=== PATIENT | female | born 1985 | race Caucasian/White ===

== ENCOUNTER 2020-07-06 14:27 | Emergency (ER) | payer BC, MEDICAID, SELFPAY ==
[2020-07-06 14:32] VITALS: BP 134/85; PULSE 101; RESP 16; TEMP 37.2; O2SAT 99; BMI 28.3
--- NOTE | 2020-07-06 14:36 | XRR_ITS ---
PROCEDURE INFORMATION: Exam: XR Chest, 1 View Exam date and time: 07/06/2020 2:37 PM Age: 34 years old Clinical indication: Chest pain; Additional info: Cp TECHNIQUE: Imaging protocol: XR of the chest Views: 1 view. Total images: 1 COMPARISON: No relevant prior studies available. FINDINGS: Lungs: Unremarkable. No consolidation. Pleural spaces: Unremarkable. No pleural effusion. No pneumothorax. Heart/Mediastinum: Unremarkable. No cardiomegaly. Bones/joints: Unremarkable. XR/XR chest 1V portable [id number] IMPRESSION: No acute findings.
--- NOTE | 2020-07-06 14:48 | ECG_ITS ---
[facility] Test Date: 2020-07-06 Pat Name: GUILLE PITTS Department: Room: Gender: Female Warping [employer] Operator: : 1985 Requested By: Capo Pat Order Number: [id number] Soco MD: Cherie Garcia M.D. Measurements Intervals Camilla Rate: 99 P: 66 AK: 146 QRS: 55 QRSD: 86 T: 48 QT: 338 QTc: 434 Interpretive Statements SINUS RHYTHM NONSPECIFIC T-WAVE ABNORMALITY No previous ECG available for comparison Electronically Signed On 07-06-2020 18:36:15 INTERIOR DECORATOR by Cherie Garcia M.D. [id number]
--- NOTE | 2020-07-06 14:51 | W.ED.CHESTPA ---
HPI - Chest Pain General: Chief Complaint: Chest Pain Stated Complaint: CP Time Seen by Provider: 07/06/20 14:39 History of Present Illness: HPI narrative: The patient is a 34-year-old female previously healthy who complains of midsternal chest pain worse with coughing. She developed a cough 3 days ago. Denies fever, chills, and shortness of breath. She is tender to palpation in her mid chest reproducing her chief complaint. She says the pain started this morning at work and has worsened. As well she has a relative from a chcf she has been helping to lift and move around to the bathroom for the past couple weeks. MD complaint: chest pain Onset: during rest and during exertion Pain location: substernal Pain radiation: none Quality: sharp Relieving factors: nothing Exacerbating factors: nothing Associated symptoms: Reports no associated symptoms; Deny abdominal pain, dyspnea or palpitations Review of Systems General: Reports: 10 or more systems reviewed and unremarkable except in HPI and below Const: Denies: fatigue Eyes: Denies: change in vision, blurry vision or eye redness ENMT: Denies: throat pain, swelling of lips/tongue, ear or mastoid pain or nasal congestion Card: Denies: chest pain, palpitations, irregular heart rhythm, edema, dyspnea on exertion or orthopnea Resp: Denies: dyspnea, productive cough or non-productive cough GI: Denies: abdominal pain, diarrhea or GI cramping : Denies: flank pain, difficulty voiding, urinary frequency or urinary urgency Musc: Denies: neck pain, back pain, extremity pain, joint pain, joint redness, limited range of motion or muscle weakness Skin/Breast: Denies: rash, pruritus, erythema, skin pain or skin tenderness Neuro: Denies: headache(s), numbness in extremities, weakness in extremities, sensory changes, difficulty walking, dizziness, confusion or Slurred speech present Psych: Denies: anxiety or depression Endo: Denies: polyuria All/Imm: Denies: urticaria, throat swelling or tongue swelling [facility] ED Female Reproductive History: Date of last menstrual period: 06/16/20 Physical Exam Const: COMMON NORMALS: no acute distress, average body habitus, patient oriented x3, no limitations, healthy appearing, alert and well nourished GENERAL APPEARANCE: cooperative, comfortable, well kempt and well developed ORIENTATION/CONSCIOUSNESS: Yes awake, Yes oriented to person, Yes oriented to place and Yes oriented to time HENMT: COMMON NORMALS: normocephalic, external ears normal and Normal external nose present HEAD & SCALP: normal to inspection and normocephalic NOSE: Normal external nose present EXTERNAL EAR: Yes external ears normal MOUTH: Normal oral and palatal mucosa present THROAT: posterior oropharynx normal Eye: COMMON NORMALS: Equal, round and reactive pupils present and EOMs intact bilaterally GENERAL EYE: appearance normal, both eyes and all related structures PUPIL: Yes Equal, round and reactive pupils present Neck/C-Spine: COMMON NORMALS: full ROM, no lymphadenopathy, no meningeal signs and no JVD GENERAL: Yes normal visual inspection Lymph: LYMPHATIC: no lymphadenopathy noted Chest: COMMONS NORMALS: normal inspection of the chest and normal palpation of entire chest wall OTHER: Anterior chest wall tenderness reproducing her chief complaint Resp: COMMON NORMALS: normal respiratory effort, No retractions, No use of accessory muscles, clear to auscultation bilaterally and percussion normal EFFORT & INSPECTION: Yes able to speak in complete sentences AUSCULTATION: clear to auscultation bilaterally PERCUSSION: percussion normal Cardio: COMMON NORMALS: no JVD, regular rate, regular rhythm, S1 normal heart sound present, S2 normal heart sound present and Peripheral pulses 2+ throughout RATE: regular rate RHYTHM: regular rhythm HEART SOUNDS: S1 normal heart sound present and S2 normal heart sound present PERIPHERAL PULSES: Peripheral pulses 2+ throughout GI: COMMON NORMALS: Normal to inspection, nondistended, normoactive bowel sounds present, Soft to palpation, non-tender and no masses INSPECTION: Yes normal to inspection PALPATION: Yes Soft to palpation : COMMON NORMALS: Yes no CVA tenderness BLADDER/KIDNEY EXAM: Yes no CVA tenderness Back/Pelvis: COMMON NORMALS: no CVA tenderness, thoracic and lumbar spine normal to inspection, no thoracic nor lumbar tenderness and thoraco-lumbar ROM normal Extremity: COMMON NORMALS: normal to inspection, full ROM, capillary refill normal, no joint enlargement and no pedal edema GENERAL: Yes normal exam except as noted Neuro: COMMON NORMALS: patient oriented x3, CN's II-XII intact bilaterally, moves all extremities, no focal motor deficits, no sensory deficits noted and gait normal SENSORIUM/ORIENTATION: Yes alert, Yes oriented to person, Yes oriented to place and Yes oriented to time MENINGEAL SIGNS: Yes no meningeal signs Psych: COMMON NORMALS: mental status grossly normal, Normal thought process present, cooperative, normal affect and speech normal APPEARANCE: Yes well kempt ATTITUDE: Yes calm SPEECH: Yes normal speech THOUGHT PROCESS: Normal thought process present Skin: COMMON NORMALS: no rashes or lesions noted GENERAL SKIN EXAM: no rashes or lesions noted Course ED course: Patient comes in with reproducible chest pain to coughing and palpation. Acute bronchitis. Discharged with azithromycin. Follow-up with primary care physician in a few days. Vital Signs: Vital signs: Vital Signs Temperature 99 F 07/06/20 14:32 Pulse Rate 101 H 07/06/20 14:32 Respiratory Rate 16 07/06/20 14:32 Blood Pressure 134/85 07/06/20 14:32 Pulse Oximetry 99 07/06/20 14:32 MDM - Chest Pain Lab Data: Labs: Lab Results 07/06/20 07/06/20 07/06/20 Range/Units 15:05 15:05 15:05 WBC 8.0 (4.0-10.0) 10^3/ uL RBC 4.62 (4.1-5.3) 10^6/u L Hgb 14.0 (11.5-15.3) g/dL Hct 41.8 (37.0-47.0) % MCV 90.5 (81-99) fL MCH 30.3 (28.0-34.0) pg MCHC 33.5 (30.0-36.0) g/dL RDW 11.9 L (12.1-15.1) % Plt Count 270 (130-400) 10^3/c mm MPV 11.0 H (7.4-10.4) fL Neut % (Auto) 69.6 % Lymph % (Auto) 24.3 % [place] % (Auto) 4.5 % Eos % (Auto) 0.6 % Baso % (Auto) 0.9 % Neut # (Auto) 5.56 (1.8-7.7) 10^3/u L Lymph # (Auto) 1.9 (0.8-4.8) 10^3/u L [place] # (Auto) 0.4 (0.2-0.9) 10^3/u L Eos # (Auto) 0.1 (0.0-0.8) 10^3/u L Baso # (Auto) 0.1 (0.0-0.1) 10^3/u L Nucleated RBC % (a uto) 0 % Nucleated RBCs # 0.0 /100WBC D-Dimer 0.31 (0-0.59) ug/mIFE U Sodium 137 (136-145) mmol/L Potassium 3.9 (3.5-5.1) mmol/L Chloride 102 (98-107) mmol/L Carbon Dioxide 27 (22-29) mmol/L Anion Gap 11.9 (5-19) BUN 3 L (6-20) mg/dL Creatinine 0.5 (0.5-0.9) mg/dL GFR Calculation 143.0 H (90-130) mL/min Glucose 99 (65-115) mg/dL Calculated Osmolal ity 281 L (285-295) mOsm/k g Calcium 9.4 (8.5-10.5) mg/dL Total Bilirubin 0.2 (0.15-1.2) mg/dL AST 16 (0-32) U/L ALT 16 (0-33) U/L Alkaline Phosphata se 83 (35-105) IU/L Troponin T Baselin e (0-10) ng/L Total Protein 6.6 (6.6-8.7) g/dL Albumin 4.1 (3.5-5.2) g/dL Globulin 2.5 (1.3-4.6) g/dL HCG, Qual (Negative) Urine Color (Yellow) Urine Appearance (CLEAR) Urine pH (5-7) Ur Specific [place] (1.005-1.030) Urine Protein (Negative) Urine Glucose (UA) (Normal) Urine Ketones (Negative) Urine Blood (Negative) Urine Nitrate (Negative) Urine Bilirubin (Negative) Urine Urobilinogen (Negative) mg/dL Ur Leukocyte Natalia ase (Negative) 07/06/20 07/06/20 07/06/20 Range/Units 15:05 15:25 15:25 WBC (4.0-10.0) 10^3/ uL RBC (4.1-5.3) 10^6/u L Hgb (11.5-15.3) g/dL Hct (37.0-47.0) % MCV (81-99) fL MCH (28.0-34.0) pg MCHC (30.0-36.0) g/dL RDW (12.1-15.1) % Plt Count (130-400) 10^3/c mm MPV (7.4-10.4) fL Neut % (Auto) % Lymph % (Auto) % [place] % (Auto) % Eos % (Auto) % Baso % (Auto) % Neut # (Auto) (1.8-7.7) 10^3/u L Lymph # (Auto) (0.8-4.8) 10^3/u L [place] # (Auto) (0.2-0.9) 10^3/u L Eos # (Auto) (0.0-0.8) 10^3/u L Baso # (Auto) (0.0-0.1) 10^3/u L Nucleated RBC % (a uto) % Nucleated RBCs # /100WBC D-Dimer (0-0.59) ug/mIFE U Sodium (136-145) mmol/L Potassium (3.5-5.1) mmol/L Chloride (98-107) mmol/L Carbon Dioxide (22-29) mmol/L Anion Gap (5-19) BUN (6-20) mg/dL Creatinine (0.5-0.9) mg/dL GFR Calculation (90-130) mL/min Glucose (65-115) mg/dL Calculated Osmolal ity (285-295) mOsm/k g Calcium (8.5-10.5) mg/dL Total Bilirubin (0.15-1.2) mg/dL AST (0-32) U/L ALT (0-33) U/L Alkaline Phosphata se (35-105) IU/L Troponin T Baselin e 6 (0-10) ng/L Total Protein (6.6-8.7) g/dL Albumin (3.5-5.2) g/dL Globulin (1.3-4.6) g/dL HCG, Qual Negative (Negative) Urine Color Straw (Yellow) Urine Appearance Clear (CLEAR) Urine pH 7 (5-7) Ur Specific [place] 1.005 (1.005-1.030) Urine Protein Neg (Negative) Urine Glucose (UA) Norm (Normal) Urine Ketones Negative (Negative) Urine Blood Neg (Negative) Urine Nitrate Negative (Negative) Urine Bilirubin Neg (Negative) Urine Urobilinogen Norm (Negative) mg/dL Ur Leukocyte Natalia ase Negative (Negative) Discharge Plan Discharge Patient Disposition: Home Clinical Impression: Acute bronchitis Condition: Stable Prescriptions: New azithromycin 250 mg tablet See Rx Instructions PO .COMPLEX Qty: 6 RF: 0 Discharge Orders: Discharge ED (Routine); Ordered 07/06/20 Ordered By: Capo Pat Discharge Diet: Advance as tolerated Discharge Activity: Resume usual activity Patient Instructions: Upper Respiratory Infection (ED), Opioid Safety Activity Restrictions/Additional Instructions: You most likely have acute bronchitis which is causing your chest pain from the cough and lifting your heavy relative. Please take ibuprofen for this pain and I have prescribed you azithromycin to help with the infection. Return to the ER with worsening symptoms otherwise follow-up with your primary care physician in a few days to monitor improvement of your symptoms Coding Level of Care Code ED Tool Maintenance Worker for Osiel Fwjasmina Exam Comprehensive
[2020-07-06 15:13] LABS: Basophils # 0.1 10^3/uL (0.0-0.1); Basophils % 0.9 %; Eosinophils # 0.1 10^3/uL (0.0-0.8); Eosinophils % 0.6 %; Hematocrit 41.8 % (37.0-47.0); Lymphocytes # 1.9 10^3/uL (0.8-4.8); Lymphocytes % 24.3 %; Mean Corpuscular HGB Conc 33.5 g/dL (30.0-36.0); Mean Corpuscular Hemoglobin 30.3 pg (28.0-34.0); Mean Corpuscular Volume 90.5 fL (81-99); Monocytes # 0.4 10^3/uL (0.2-0.9); Monocytes % 4.5 %; Neutrophils # 5.56 10^3/uL (1.8-7.7); Neutrophils % 69.6 %; Nucleated Red Blood Cells % 0 %; Platelet Count 270 10^3/cmm (130-400); Red Blood Count 4.62 10^6/uL (4.1-5.3); Red Cell Distribution Width 11.9 % (12.1-15.1)
[2020-07-06 15:31] LABS: Add Urine Microscopic? NO
[2020-07-06 15:33] LABS: D Dimer 0.31 ug/mIFEU (0-0.59)
[2020-07-06 15:34] LABS: Troponin(5th) Baseline 6 ng/L (0-10)
[2020-07-06 15:35] LABS: Alanine Aminotransferase 16 U/L (0-33); Albumin Level 4.1 g/dL (3.5-5.2); Alkaline Phosphatase 83 IU/L (35-105); Anion Gap 11.9 (5-19); Aspartate Amino Transferase 16 U/L (0-32); Blood Urea Nitrogen 3 mg/dL (6-20); Calcium 9.4 mg/dL (8.5-10.5); Carbon Dioxide 27 mmol/L (22-29); Chloride 102 mmol/L (98-107); Creatinine Clr Calc Pharmacy 154.1985; Globulin 2.5 g/dL (1.3-4.6); Glucose 99 mg/dL (65-115); Osmolality Calculated 281 mOsm/kg (285-295); Potassium 3.9 mmol/L (3.5-5.1); Sodium 137 mmol/L (136-145); Total Bilirubin 0.2 mg/dL (0.15-1.2); Total Protein 6.6 g/dL (6.6-8.7)
[2020-07-06 15:48] LABS: Bilirubin Urine Neg (Negative); Blood Urine Neg (Negative); Glucose Urine UA Norm (Normal); HCG Qualitative Urine. Negative (Negative); Ketones Urine Negative (Negative); Leukocyte Esterase Urine Negative (Negative); Nitrate Urine Negative (Negative); Protein Urine Neg (Negative); Specific Gravity, Urine 1.005 (1.005-1.030); Urine Appearance Clear (CLEAR); Urine Color Straw (Yellow); Urobilinogen Urine Norm (Negative); pH Urine 7 (5-7)
[2020-07-06 16:04] VITALS: BP 114/50; PULSE 93; RESP 20; O2SAT 97
--- NOTE | 2020-07-07 14:09 | DCPLANNER ---
document imaging manager had message to speak with patient about getting established with a primary care physician. document imaging manager called phone number [phone], spoke with a person by the name of Elena, but was not the patient. The person on the phone that geriatric case manager spoke with stated that her name was Elena, but that she does not live in this area, and was not seen in the ER at [facility]. The phone number that geriatric case manager called was [facility] phone number. document imaging manager was asked to have phone number taken off of the account. document imaging manager asked registration to remove the phone number.
== END 2020-07-06 16:02 | disposition home or self-care (01) ==
PROVIDERS: Emergency Provider Family Medicine
DX: J20.9 Acute bronchitis, unspecified (principal)
CPT/HCPCS: 71045; 80053; 81003; 81025; 84484; 85025; 85378; 93005; 99283

== ENCOUNTER → 2021-01-29 09:59 | Outpatient (BNVA) | payer BC, MEDICAID, SELFPAY | PROVIDERS: Visit Provider Nurse Practitioner Family | DX: Z20.822 Contact with and (suspected) exposure to COVID-19 (principal) | CPT/HCPCS: 87635 ==

== ENCOUNTER 2021-07-01 09:21 | Emergency (ER) | payer BC, MEDICAID, SELFPAY ==
[2021-07-01 09:27] VITALS: BP 119/62; PULSE 82; RESP 14; TEMP 36.3; O2SAT 100; BMI 25.0
[2021-07-01 09:39] VITALS: BP 119/62; PULSE 82; RESP 14; TEMP 36.3; O2SAT 100
--- NOTE | 2021-07-01 09:54 | CT_ITS ---
WS: [id number] CT ABDOMEN PELVIS TECHNIQUE: Contrast-enhanced CT of the abdomen and pelvis with coronal and sagittal reformatted image s. CLINICAL INFORMATION: abd pain COMPARISON: None. DLP: 1241.[address] scans at [facility] use at least one of these dose optimization techniques: automated e xposure control; mA and/or kV adjustment per patient size (includes targeted exams where dose is matc hed to clinical indication); or iterative reconstruction. FINDINGS: Mild diffuse fatty infiltration of the liver. Normal portal vein and splenic vein. Mild hepatomegaly. Normal spleen. Normal GE junction. Slight atelectasis in the lung bases. Adrenal glands are normal. Normal renal parenchymal enhancement. No hydronephrosis. Normal pancreatic parenchymal enhancement. Normal caliber abdominal aorta. Normal celiac and SMA. RIGHT ovarian cyst measuring 2.0 x 1.5 cm. Tiny amount of fluid about the RIGHT ovary. Physiologic ut erine enhancement with fluid or endometrial thickening in the endometrial canal. Normal sigmoid colon. Inspissated secretions in the normal caliber appendix. Appendix otherwise appea rs normal. No evidence of acute appendicitis. No abdominal or pelvic lymphadenopathy. No inguinal lym phadenopathy. CT/CT abdomen pelvis w con* [id number] IMPRESSION: 1. Inspissated secretions in the appendix otherwise normal in appearance. No e vidence of acute appendicitis. 2. RIGHT ovarian cyst measuring 1.8 x 2.0 CM. Small amount of surrounding flui d. 3. Fluid or thickening in the endometrial canal. 4. Normal sigmoid colon. 5. No hydronephrosis. 6. Mild diffuse fatty infiltration of the liver. Notified Julio Brown DO at 07/01/2021 10:51 AM.
--- NOTE | 2021-07-01 09:56 | W.ED.ABDPA2 ---
HPI - Abdominal Pain General: Chief Complaint: Abdominal Pain Stated Complaint: ABD Pain Time Seen by Provider: 07/01/21 09:47 Source: patient History of Present Illness: 35-year-old female presents to the emergency room with abdominal pain that began last night around 10:00. She localizes pain to the right lower quadrant. She is not any loss of appetite no vomiting or diarrhea no hematochezia melena hematemesis no dysuria urgency or frequency. She is previously had section x4 no other surgeries. She did not had any other symptoms at this point. She does not notice anything that seems to exacerbate or relieve it other than exam does irritated. MD elicited complaint: abdominal pain Pertinent past history: none Onset (ago): hour(s) Pain Consistency: constant Location: RLQ Severity: moderate Quality: cramping Radiation: none Migration to: no migration Exacerbating factors: nothing Relieving factors: nothing Associated Symptoms: Denies anorexia, belching, bloating, change in bowel habits, change in stool character, chills, coffee ground emesis, constipation, GI cramping, diarrhea, dyspepsia, dysuria, excessive flatus, fever(s), heartburn, hematochezia, hematuria, hematemesis, fecal incontinence, loose stools, melena, nausea, poor appetite, syncope and vomiting Related Data: Date of Last Menstrual Period: 05/18/21 Review of Systems Const: Denies: fever(s) or chills Card: Denies: syncope Resp: Denies: dyspnea, productive cough or non-productive cough GI: Denies: nausea, vomiting, hematemesis, coffee ground emesis, heartburn, diarrhea, constipation, bloating, GI cramping, belching, excessive flatus, fecal incontinence, change in bowel habits, change in stool character, hematochezia or melena : Denies: dysuria or hematuria PFSH ED PFSH: Medical History Caries involving multiple surfaces of tooth Migraine Surgical History History of section 2006, 2010, 2012, 2016 Family History Mother Hypertension Stroke Denies family history of Diabetes Dementia Cancer Social History Smoking and tobacco status: current every day smoker cigarettes Packs smoked per day: 0.5 Second hand smoke exposure: No Smoking risk assessment/counseling performed?: Yes Alcohol intake: never Desire information about alcohol rehabilitation?: No Counseling given: Yes Desire information about substance/drug rehabilitation?: No Counseling given: Yes Adopted: No Caregiver/support person: No Lives independently: Yes Household members: spouse Housing: House Marital status: Number of children: 4 Highest education level completed: High School Graduate service: No Current occupational status: employed Pets and animals: No History of recent travel: No Female Reproductive History: Date of last menstrual period: 05/18/21 Para: 4 Spontaneous abortions: Yes (2) Physical Exam Const: GENERAL APPEARANCE: cooperative and comfortable ORIENTATION/CONSCIOUSNESS: Yes awake, Yes oriented to person, Yes oriented to place and Yes oriented to time HENMT: COMMON NORMALS: normocephalic, atraumatic and hearing grossly normal bilaterally HEAD & SCALP: normocephalic and atraumatic Neck/C-Spine: COMMON NORMALS: no JVD Resp: COMMON NORMALS: normal respiratory effort, No retractions, No use of accessory muscles and clear to auscultation bilaterally AUSCULTATION: clear to auscultation bilaterally Cardio: COMMON NORMALS: no JVD, regular rate, regular rhythm and No murmurs present (Cardio) RATE: regular rate RHYTHM: regular rhythm GI: AUSCULTATION: Yes Hypoactive bowel sounds present PALPATION: Yes Tenderness to palpation present (GI) Details: RLQ and Yes Guarding due to palpation present (GI) Extremity: COMMON NORMALS: normal to inspection, capillary refill normal, no clubbing, cyanosis or edema, no calf tenderness and no pedal edema Neuro: SENSORIUM/ORIENTATION: Yes oriented to person, Yes oriented to place and Yes oriented to time Skin: COMMON NORMALS: no rashes or lesions noted GENERAL SKIN EXAM: no rashes or lesions noted Course Vital Signs: Vital signs: Vital Signs Temperature 97.4 F L 07/01/21 09:39 Pulse Rate 82 07/01/21 09:39 Respiratory Rate 16 07/01/21 10:11 Blood Pressure 119/62 07/01/21 09:39 Pulse Oximetry 99 07/01/21 10:11 MDM - Abdominal Pain Medical Decision Making White count normal CT does not show any acute appendicitis discussed with radiologist. She does have a right ovarian cyst. Started on an NSAID follow-up with primary care doctor for repeat pelvic ultrasound in 1 to 2 months return if is worsening problems Medical Records I reviewed the patient's medical records. Lab Data I reviewed the patient's lab results. : 07/01/21 09:50 07/01/21 09:50 Labs/Radiology: Radiology Impressions Abdomen/Pelvis CT 07/01/21 09:54 IMPRESSION: 1. Inspissated secretions in the appendix otherwise normal in appearance. No evidence of acute appendicitis. 2. RIGHT ovarian cyst measuring 1.8 x 2.0 CM. Small amount of surrounding fluid. 3. Fluid or thickening in the endometrial canal. 4. Normal sigmoid colon. 5. No hydronephrosis. 6. Mild diffuse fatty infiltration of the liver. Notified Julio Brown DO at 07/01/2021 10:51 AM. Laboratory Results WBC 7.0 10^3/uL (4.0-10.0) 07/01/21 09:50 RBC 4.74 10^6/uL (4.1-5.3) 07/01/21 09:50 Hgb 14.3 g/dL (11.5-15.3) 07/01/21 09:50 Hct 43.1 % (37.0-47.0) 07/01/21 09:50 MCV 90.9 fl (81-99) 07/01/21 09:50 MCH 30.2 pg (28.0-34.0) 07/01/21 09:50 MCHC 33.2 g/dL (30.0-36.0) 07/01/21 09:50 RDW 12.2 % (12.1-15.1) 07/01/21 09:50 Plt Count 271 10^3/cmm (130-400) 07/01/21 09:50 MPV 10.7 fL (7.4-10.4) H 07/01/21 09:50 Neut % (Auto) 52.4 % 07/01/21 09:50 Lymph % (Auto) 40.5 % 07/01/21 09:50 [place] % (Auto) 5.0 % 07/01/21 09:50 Eos % (Auto) 1.1 % 07/01/21 09:50 Baso % (Auto) 0.7 % 07/01/21 09:50 Neut # (Auto) 3.67 10^3/uL (1.8-7.7) 07/01/21 09:50 Lymph # (Auto) 2.8 10^3/uL (0.8-4.8) 07/01/21 09:50 [place] # (Auto) 0.4 10^3/uL (0.2-0.9) 07/01/21 09:50 Eos # (Auto) 0.1 10^3/uL (0.0-0.8) 07/01/21 09:50 Baso # (Auto) 0.1 10^3/uL (0.0-0.1) 07/01/21 09:50 Nucleated RBC % (auto) 0 % 07/01/21 09:50 Nucleated RBCs # 0.0 /100WBC 07/01/21 09:50 Sodium 137 mmol/L (136-145) 07/01/21 09:50 Potassium 3.4 mmol/L (3.5-5.1) L 07/01/21 09:50 Chloride 101 mmol/L (98-107) 07/01/21 09:50 Carbon Dioxide 26 mmol/L (22-29) 07/01/21 09:50 Anion Gap 13.4 (5-19) 07/01/21 09:50 BUN 6 mg/dL (6-20) 07/01/21 09:50 Creatinine 0.7 mg/dL (0.5-0.9) 07/01/21 09:50 GFR Calculation 96.4 mL/min (90-130) 07/01/21 09:50 Glucose 82 mg/dL (65-115) 07/01/21 09:50 Calculated Osmolality 281 mOsm/kg (285-295) L 07/01/21 09:50 Calcium 9.5 mg/dL (8.5-10.5) 07/01/21 09:50 Total Bilirubin 0.3 mg/dL (0.15-1.2) 07/01/21 09:50 AST 12 U/L (0-32) 07/01/21 09:50 ALT 10 U/L (0-33) 07/01/21 09:50 Alkaline Phosphatase 62 IU/L (35-105) 07/01/21 09:50 Total Protein 7.3 g/dL (6.6-8.7) 07/01/21 09:50 Albumin 4.5 g/dL (3.5-5.2) 07/01/21 09:50 Globulin 2.8 g/dL (1.3-4.6) 07/01/21 09:50 Lipase 31 U/L (13-60) 07/01/21 09:50 HCG, Qual Negative (Negative) 07/01/21 09:50 Urine Color Yellow (Yellow) 07/01/21 10:15 Urine Appearance Clear (CLEAR) 07/01/21 10:15 Urine pH 5 (5-7) 07/01/21 10:15 Ur Specific [place] 1.000 (1.005-1.030) L 07/01/21 10:15 Urine Protein Neg (Negative) 07/01/21 10:15 Urine Glucose (UA) Norm (Normal) 07/01/21 10:15 Urine Ketones Negative (Negative) 07/01/21 10:15 Urine Blood 3+ (Negative) H 07/01/21 10:15 Urine Nitrate Negative (Negative) 07/01/21 10:15 Urine Bilirubin Neg (Negative) 07/01/21 10:15 Urine Urobilinogen Norm mg/dL (Negative) 07/01/21 10:15 Ur Leukocyte Esterase Negative (Negative) 07/01/21 10:15 Urine RBC None /hpf (0-2) 07/01/21 10:15 Urine WBC None /hpf (0-5) 07/01/21 10:15 Ur Squamous Epith Cells 10-15 /hpf (0-5) H 07/01/21 10:15 Amorphous Sediment Not Reportable 07/01/21 10:15 Urine Bacteria 1+ /hpf (NONE) H 07/01/21 10:15 Discharge Plan Discharge Patient Disposition: Home Clinical Impression: Ovarian cyst Condition: Stable Prescriptions: New diclofenac sodium 75 mg tablet,delayed release (DR/EC) 75 mg PO Q12H PRN (Reason: pain) Qty: 20 0RF No Action chlorhexidine gluconate [Peridex] 0.12 % mouthwash 15 ml buccal BID Qty: 473 5RF cefuroxime axetil 500 mg tablet 500 mg PO BID Qty: 20 0RF Probiotic Digestive Care 20 billion cell capsule See Rx Instructions PO .2 times day Qty: 60 2RF Rx Instructions: 20 billion cell PO .2 times day; Discharge Orders: Discharge ED (Routine); Ordered 07/01/21 Ordered By: Julio Brown Discharge Diet: Usual diet Discharge Activity: Resume usual activity Patient Instructions: Opioid Safety Activity Restrictions/Additional Instructions: Follow-up with your primary care doctor within the next 2 weeks. If any worsening symptoms return. Coding Level of Care Code ED Water Resources Project Manager for Osiel Fwd Exam Comprehensive
[2021-07-01 09:57] LABS: Basophils # 0.1 10^3/uL (0.0-0.1); Basophils % 0.7 %; Eosinophils # 0.1 10^3/uL (0.0-0.8); Eosinophils % 1.1 %; Hematocrit 43.1 % (37.0-47.0); Hemoglobin 14.3 g/dL (11.5-15.3); Lymphocytes # 2.8 10^3/uL (0.8-4.8); Lymphocytes % 40.5 %; Mean Corpuscular HGB Conc 33.2 g/dL (30.0-36.0); Mean Corpuscular Hemoglobin 30.2 pg (28.0-34.0); Mean Corpuscular Volume 90.9 fl (81-99); Mean Platelet Volume 10.7 fL (7.4-10.4); Monocytes # 0.4 10^3/uL (0.2-0.9); Neutrophils # 3.67 10^3/uL (1.8-7.7); Neutrophils % 52.4 %; Nucleated Red Blood Cells % 0 %; Platelet Count 271 10^3/cmm (130-400); Red Blood Count 4.74 10^6/uL (4.1-5.3); Red Cell Distribution Width 12.2 % (12.1-15.1)
[2021-07-01] MEDS: lactated ringers 1,000 ML 999 ML IV (10:03)
[2021-07-01] MEDS: ondansetron 2 mg/ML SDV 2 mL 4 MG IVP (10:10)
[2021-07-01 10:11] VITALS: RESP 16; O2SAT 99
[2021-07-01] MEDS: morphine 4 mg/mL SDV 1 mL IVP (10:11)
[2021-07-01 10:16] LABS: Alanine Aminotransferase 10 U/L (0-33); Albumin Level 4.5 g/dL (3.5-5.2); Alkaline Phosphatase 62 IU/L (35-105); Anion Gap 13.4 (5-19); Aspartate Amino Transferase 12 U/L (0-32); Blood Urea Nitrogen 6 mg/dL (6-20); Calcium 9.5 mg/dL (8.5-10.5); Carbon Dioxide 26 mmol/L (22-29); Chloride 101 mmol/L (98-107); Globulin 2.8 g/dL (1.3-4.6); Glomerular Filtration Rate 96.4 mL/min (90-130); Glucose 82 mg/dL (65-115); Lipase 31 U/L (13-60); Osmolality Calculated 281 mOsm/kg (285-295); Potassium 3.4 mmol/L (3.5-5.1); Sodium 137 mmol/L (136-145); Total Bilirubin 0.3 mg/dL (0.15-1.2); Total Protein 7.3 g/dL (6.6-8.7)
[2021-07-01 10:17] LABS: HCG, Serum Qual Negative (Negative)
[2021-07-01] MEDS: iohexol 300 mg/mL 100 mL Btl IV (10:38)
[2021-07-01 10:45] LABS: Add Urine Microscopic? YES; Bacteria Urine 1+ /hpf; Bilirubin Urine Neg (Negative); Blood Urine 3+ (Negative); Glucose Urine UA Norm (Normal); Ketones Urine Negative (Negative); Leukocyte Esterase Urine Negative (Negative); Nitrate Urine Negative (Negative); Protein Urine Neg (Negative); Urine Appearance Clear (CLEAR); Urine Color Yellow (Yellow); Urobilinogen Urine Norm (Negative); pH Urine 5 (5-7)
--- NOTE | 2021-07-01 11:27 | PC.NURSE ---
patient verbalizes understanding of all instructions, follow ups and medications, removed iv- cath intact and patient amb from the ed
== END 2021-07-01 11:28 | disposition home or self-care (01) ==
PROVIDERS: Physician Assistant; Emergency Provider Family Medicine
DX: N83.201 Unspecified ovarian cyst, right side (principal); F17.210 Nicotine dependence, cigarettes, uncomplicated
CPT/HCPCS: 74177; 80053; 81001; 83690; 84703; 85025; 96361; 96374; 96375; 99283; J2270; J2405; Q9967

== ENCOUNTER → 2021-07-03 09:20 | Outpatient (BNVA) | payer BC, MEDICAID, SELFPAY | PROVIDERS: PCP Nurse Practitioner Family; Visit Provider Nurse Practitioner Family | DX: N83.209 Unspecified ovarian cyst, unspecified side (principal); R10.31 Right lower quadrant pain | CPT/HCPCS: 80053; 85025 ==

== ENCOUNTER 2021-07-28 06:42 | Outpatient (CLI) | payer BC, MEDICAID, SELFPAY ==
--- NOTE | 2021-07-28 07:15 | US_ITS ---
WS: [id number] Pelvic ultrasound, 07/28/2021 Clinical Data: R10.2 - Pelvic and perineal pain Comparison: CT abdomen pelvis, 07/01/2021. Findings: The uterus measures 8.5 cm x 5.7 cm x 4.6 cm. The endometrium is 0.8 cm. No intrauterine or abnormal intrauterine mass is seen. There are nabothian cysts in the cervix. The left ovary measures 3.9 cm x 2.6 cm x 1.8 cm with no cy sts or masses. The right ovary measures 4.4 cm x 3.4 cm x 2.1 cm with no cysts or masses. No fluid is seen in the cul-de-sac. US/US pelvic with transvaginal Impression: Negative pelvic ultrasound.
== END 2021-07-28 06:43 | disposition home or self-care (01) ==
LOC: RAD 06:42
PROVIDERS: PCP Nurse Practitioner Family; Visit Provider Obstetrics & Gynecology
DX: R10.2 Pelvic and perineal pain (principal)
CPT/HCPCS: 76830; 76856

== ENCOUNTER → 2021-08-24 09:28 | Outpatient (BNVA) | payer BC, MEDICAID, SELFPAY | PROVIDERS: PCP Nurse Practitioner Family; Visit Provider Obstetrics & Gynecology | DX: Z20.822 Contact with and (suspected) exposure to COVID-19 (principal); R10.2 Pelvic and perineal pain | CPT/HCPCS: 87635 ==

== ENCOUNTER 2021-08-26 11:41 | Day surgery (SDC) | payer BC, MEDICAID, SELFPAY ==
[2021-08-24 12:49] VITALS: BMI 27.4
[2021-08-24 13:19] LABS: Basophils # 0.1 10^3/uL (0.0-0.1); Basophils % 0.9 %; Eosinophils # 0.1 10^3/uL (0.0-0.8); Eosinophils % 0.7 %; Hematocrit 40.5 % (37.0-47.0); Hemoglobin 13.7 g/dL (11.5-15.3); Lymphocytes # 2.2 10^3/uL (0.8-4.8); Lymphocytes % 31.1 %; Mean Corpuscular HGB Conc 33.8 g/dL (30.0-36.0); Mean Corpuscular Hemoglobin 30.4 pg (28.0-34.0); Monocytes # 0.4 10^3/uL (0.2-0.9); Monocytes % 5.5 %; Neutrophils % 61.7 %; Nucleated Red Blood Cells % 0 %; Platelet Count 252 10^3/cmm (130-400); Red Cell Distribution Width 11.9 % (12.1-15.1)
[2021-08-24 13:30] LABS: OR HCG Qualitative Urine Negative (Negative)
[2021-08-24 13:38] LABS: Bilirubin Urine 1+ (Negative); Blood Urine 3+ (Negative); Glucose Urine UA Norm (Normal); Ketones Urine Negative (Negative); Leukocyte Esterase Urine 1+ (Negative); Nitrate Urine Negative (Negative); Protein Urine 2+ (Negative); Urine Appearance Bloody (CLEAR); Urine Color Red (Yellow); Urobilinogen Urine 1 mg/dL (Negative); pH Urine 5 (5-7)
[2021-08-24 13:39] LABS: Add Urine Culture? Yes; Add Urine Microscopic? YES; Bacteria Urine 1+ /hpf; RBC Urine TOO NUMEROUS TO CNT /hpf (0-2); Squamous Epithelial Cell Urine RARE /hpf (0-5); WBC Urine 15-25 /hpf (0-5)
[2021-08-24 13:45] LABS: Anion Gap 11.2 (5-19); Blood Urea Nitrogen 7 mg/dL (6-20); Calcium 9.1 mg/dL (8.5-10.5); Carbon Dioxide 26 mmol/L (22-29); Chloride 101 mmol/L (98-107); Glomerular Filtration Rate 95.8 mL/min (90-130); Glucose 90 mg/dL (65-115); Osmolality Calculated 276 mOsm/kg (285-295); Potassium 4.2 mmol/L (3.5-5.1); Sodium 134 mmol/L (136-145)
--- NOTE | 2021-08-24 16:16 | P.ANESASSM_ITS ---
Pre-Anesthetic Assessment Height/Weight: Height 1.63 m Weight 72.575 kg Preop Diagnosis: Chronic pelvic pain Operation Date: 08/26/21 09:35 Proposed Procedures p Laparoscopy(Not Applicable) - Nazario Jo MD Familial anesthetic complications: None Was Beta Corey taken within 24 hours: N/A Was Clonidine taken within 24 hours: N/A Social No alcohol and No tobacco Exam alert, oriented x 3, clear to auscultation bilaterally and regular rate & rhythm Airway Submandibular: within normal limits Cervical ROM: within normal limits Mallampati: Class II Dentition: chipped Comments: Comments: Very poor dentition, most cracked and missing Musc/skel Lower Back Pain Anesthetic Plan ASA status: 2 Anesthesia: General Medications/Allergies Home Medications Medication Instructions Recorded Confirmed Last Taken Type diclofenac sodium 75 mg 75 mg PO Q12H PRN #20 tab 07/01/21 08/24/21 Unknown Rx tablet,delayed release Allergies Allergy/AdvReac Type Severity Reaction Status Date / Time No Known Allergies Allergy Verified 08/24/21 12:48 PFSH Anesthesia Medical History Caries involving multiple surfaces of tooth Migraine Surgical History History of section 2006, 2010, 2012, 2016 Family History Mother Hypertension Stroke Clotting disorder Denies family history of Colon cancer Ovarian cancer Diabetes Heart disease Hyperlipidemia Breast cancer Anesthesia complication Bleeding disorder Uterine cancer Thyroid condition Social History (Updated 08/24/21 @ 08:57 by Giselle Grant RN) Adopted: No Caregiver/support person: No Highest education level completed: High School Graduate service: No Current occupational status: employed Female Reproductive History Date of last menstrual period: 05/18/21 Para: 4 Spontaneous abortions: Yes (2) Data Anesthesia : 08/24/21 13:05 08/24/21 13:05 Short CBC 08/24/21 Range/Units 13:05 WBC 7.0 (4.0-10.0) 10^3/uL Hgb 13.7 (11.5-15.3) g/dL Hct 40.5 (37.0-47.0) % MCV 90.0 (81-99) fl Plt Count 252 (130-400) 10^3/cmm Neut % (Auto) 61.7 % Neut # (Auto) 4.30 (1.8-7.7) 10^3/uL BMP 08/24/21 13:05 Sodium 134 L Potassium 4.2 Chloride 101 Carbon Dioxide 26 BUN 7 Creatinine 0.7 Glucose 90 Calcium 9.1 Urine 08/24/21 Range/Units 13:05 Urine Color Red (Yellow) Urine Appearance Bloody A (CLEAR) Urine pH 5 (5-7) Ur Specific [place] 1.020 (1.005-1.030) Urine Protein 2+ H (Negative) Urine Glucose (UA) Norm (Normal) Urine Ketones Negative (Negative) Urine Nitrate Negative (Negative) Urine Bilirubin 1+ H (Negative) Ur Leukocyte Esterase 1+ H (Negative) Urine RBC Too numerous to cnt H (0-2) /hpf Urine WBC 15-25 H (0-5) /hpf Blood Bank 08/24/21 13:05 Blood Type O Positive Rho(D) Type Positive Antibody Screen Negative Cardiac Studies: No Data to Display
[2021-08-26] VITALS (10 sets, daily range): BP systolic 102–137; BP diastolic 62–75; PULSE 63–94; RESP 16–22; TEMP 36.1–36.4; O2SAT 94–100
[2021-08-26] MEDS: sodium chloride 0.9% 500 ML IV (12:25)
[2021-08-26] MEDS: scopolamine 1.5 Patch 1 PATCH TRANSDERMA (12:26)
[2021-08-26 12:30] LABS: OR HCG Qualitative Urine Negative (Negative)
[2021-08-26] MEDS: sodium chloride 0.9% 1,000 ML 30 ML IV (12:59)
--- NOTE | 2021-08-26 13:31 | P.ANESUD_ITS ---
Pre-Anesthetic Update Pre-Anesthetic Assessment: Date of Surgery/Procedure: 08/26/21 Preop Vidhya gnosis: Chronic pelvic pain Proposed Procedure: Operation Date: 08/26/21 13:05 Proposed Procedures p Laparoscopy(Not Applicable) - Nazario Jo MD Any changes to Pre-Anesthetic Assessment?: No Last Intake: Intake Last Liquid Date 08/26/21 Last Liquid Time 00:00 Last Solid Date 08/25/21 Last Solid Time 18:30 Labs Last 48hrs: BMP 08/24/21 13:05 Sodium 134 L Potassium 4.2 Chloride 101 Carbon Dioxide 26 BUN 7 Creatinine 0.7 Glucose 90 Calcium 9.1 Urine 08/24/21 Range/Units 13:05 Urine Color Red (Yellow) Urine Appearance Bloody A (CLEAR) Urine pH 5 (5-7) Ur Specific Gravit y 1.020 (1.005-1.030) Urine Protein 2+ H (Negative) Urine Glucose (UA) Norm (Normal) Urine Ketones Negative (Negative) Urine Nitrate Negative (Negative) Urine Bilirubin 1+ H (Negative) Ur Leukocyte Natalia ase 1+ H (Negative) Urine RBC Too numerous to c nt H (0-2) /hpf Urine WBC 15-25 H (0-5) /hpf Blood Bank 08/24/21 13:05 Blood Type O Positive Rho(D) Type Positive Antibody Screen Negative Vitals: Temperature 97 F L 08/26/21 12:15 Temperature Source Temporal Artery S can 08/26/21 12:15 Pulse Rate 66 08/26/21 12:15 Respiratory Rate 16 08/26/21 12:15 Blood Pressure 120/73 08/26/21 12:15 Blood Pressure Laly n 88 08/26/21 12:15 Pulse Oximetry 96 08/26/21 12:15 Oxygen Delivery Me thod 08/26/21 12:15 Exam: Pre-Anes Outpt Exam: alert, oriented x 3, clear to auscultation bilaterally and regular rate & rhythm Cardiac Studies: No Data to Display
--- NOTE | 2021-08-26 14:21 | W.PM.OPSUD ---
Surgery/Procedure H&P Update DATE OF PROCEDURE: August 26, 2021 DATE H&P PERFORMED: 07/31/21 H&P UPDATE INFORMATION: I have reviewed H&P completed within last 30 days, I have examined patient prior to procedure and No changes to prior documentation PREOP DIAGNOSIS: Chronic pelvic pain PLANNED PROCEDURE: Operation Date: 08/26/21 13:05 Proposed Procedures p Laparoscopy(Not Applicable) - Nazario Jo MD
--- NOTE | 2021-08-26 15:22 | P.OP_ITS ---
Operative Report Date of procedure: August 26, 2021 Pre-op diagnosis: Preop Diagnosis Chronic pelvic pain Post-op diagnosis: same Post-op findings: normal anatomy. mild endometriosis. minimal bladder adhesion to uterine lower segment scar. Surgeon: Nazario Jo MD Estimated blood loss (mL): 5 IV fluids (mL): 250 Urine output (mL): 500 Findings: Mild endometriosis Procedure: After informed consent, the patient was taken to the operating room where general anesthesia was administered. The patient was examined under anesthesia and found to have a normal uterus with normal adnexa. She was placed in the dorsal lithotomy position and prepped and draped in sterile fashion. Pre- Procedure Time-Out verifying the correct patient identity, correct procedure verified with consent, correct site and side, correct patient position, availability of correct implants and any special equipment or requirements was performed and acknowledge by the OR team. A weighted speculum was placed in the vagina, and the anterior lip of cervix was grasped with the single toothed tenaculum. A uterine manipulator was advanced into the endocervical. Tenaculum was removed after uterine manipulator was secured. The speculum was removed from the vagina. An intraumbilical incision was made with a scalpel. While tenting up on the abdomen, a Verres needle with sleeve was admitted into the intra-abdominal cavity. A saline drop test was performed and noted to be within normal limits. Pneumoperitoneum was attained with 4 liters of carbon dioxide. The Verres needle was removed. A 5 mm trocar and sleeve were admitted into the abdomen and laparoscopic confirmation of location was achieved, A second incision was made 3 cm above the symphysis pubis, and a 5 mm trocar and sleeve were admitted into the abdomen under direct, laparoscopic visualization without complication. A survey revealed normal abdominal anatomy but pelvic survey shows normal uterus, left and right adnexa with mild enometriosis on uterus and side pelvic obrien with very small lesions. A 5 mm blunt probe was advanced through the second trocar sleeve, and light manipulation of ovaries and uterus to assess the posterior aspects was performed. Minimal bladder adhesion to uterine lower segment. Carbon dioxide was allowed to escape from the abdomen. The instruments were removed, and skin cover with a bandage. The instruments were removed from the vagina, and excellent hemostasis was noted. The patient t olerated the procedure well, and sponge, lap and needle count were correct times two. The patient taken to the recovery room in good condition.
--- NOTE | 2021-08-26 15:33 | SUR.PHASEI ---
1526 PT TO PACU 4 PT AWAKES TO VOICE, , GOOD RESP EFFORT NOTED VSS IV PATENT NS 800ML UP AT MOD RATE PER GRAVITY TO RT AC #20. ABDOMEN SOFT AND ALEXEY PAD AND UNDERWEAR IN PLACE,NO BLEEDING NOTED AT THIS TIME.
[2021-08-26] MEDS: diphenhydrAMINE 50 mg/mL SDV 1mL 12.5 MG IVP (15:51)
--- NOTE | 2021-08-26 16:24 | ANE.PACU2 ---
Inpatient post-anesthesia follow up: Airway intact: Yes Vital signs: Temperature 97.6 F Pulse Rate 92 Respiratory Rate 22 Blood Pressure 102/62 Pulse Oximetry 96 Oxygen Delivery Me thod Room Air Oxygen Flow Rate 8 Fraction of Inspir ed Oxygen Hydration adequate: Yes Nausea and vomiting: No Pain level: 2 Mental status: Baseline
[2021-08-26] MEDS: HYDROcodone-acetaminophen 5-325 mg Tablet 1 TAB PO (16:37)
[2021-08-26] MEDS: ibuprofen 800 mg tablet PO (16:38)
== END 2021-08-26 17:02 | disposition home or self-care (01) ==
PROVIDERS: Anesthesiology; PCP Nurse Practitioner Family; Visit Provider Obstetrics & Gynecology
PROC: (CPT 49320; principal; 2021-08-26 12:55)
DX: R10.2 Pelvic and perineal pain (principal); G89.29 Other chronic pain; N32.89 Other specified disorders of bladder; N80.3 Endometriosis of pelvic peritoneum
CPT/HCPCS: 49320; 36415; 80048; 81001; 81025; 84703; 85025; 86850; 86900; 87086; J0690; J1100; J1200; J2405; J2704; J2710; J3010; J3490; J7030; J7040

== ENCOUNTER → 2021-09-15 09:18 | Outpatient (BNVA) | payer BC, MEDICAID, SELFPAY | PROVIDERS: PCP Nurse Practitioner Family; Visit Provider Obstetrics & Gynecology | DX: R23.2 Flushing (principal); Z48.816 Encounter for surgical aftercare following surgery on the genitourinary system; N94.10 Unspecified dyspareunia; N80.9 Endometriosis, unspecified | CPT/HCPCS: 84443 ==

== ENCOUNTER → 2021-11-23 08:53 | Outpatient (BNVA) | payer BC, MEDICAID, SELFPAY | PROVIDERS: PCP Nurse Practitioner Family; Visit Provider Obstetrics & Gynecology | DX: N80.9 Endometriosis, unspecified (principal); N94.10 Unspecified dyspareunia; Z01.812 Encounter for preprocedural laboratory examination; R10.2 Pelvic and perineal pain | CPT/HCPCS: 80053; 81000; 81025; 85025; 86850; 86900 ==

== ENCOUNTER 2021-11-25 08:27 | Inpatient (IN) | payer BC, MEDICAID, SELFPAY ==
[2021-11-23 09:46] VITALS: BMI 28.3
--- NOTE | 2021-11-23 15:43 | ANES.PREANE2 ---
Pre-Anesthetic Assessment Height/Weight: Height 1.63 m Weight 74.843 kg Preop Diagnosis: Chronic pelvic pain Operation Date: 11/25/21 07:00 Proposed Procedures p Total Abdominal Hysterectomy 57361/R10.2/N94.10/N80.9(Not Applicable) - Nazario Jo MD Familial anesthetic complications: none Was Beta Corey taken within 24 hours: N/A Was Clonidine taken within 24 hours: N/A Social No alcohol and No tobacco Exam alert, oriented x 3, clear to auscultation bilaterally and regular rate & rhythm Airway Submandibular: within normal limits Cervical ROM: within normal limits Mallampati: Class I Dentition: chipped Comments: Comments: missing most teeth, cracked lower teeth Pulmonary None reported CV/HEM None reported chronic pelvic pain and bleeding GI None reported Metabolic None reported Musc/skel None reported Neuropsych Headache Anesthetic Plan ASA status: 2 Anesthesia: Anesthesia Evaluation and General Other: We discussed risk and benefits of general anesthesia including PONV, sore throat (sometimes severe), corneal abrasion, positioning and peripheral nerve injuries, life threatening allergic reaction, post operative ICU admission requiring prolonged intubation, aspiration, stroke, heart attack, , and rare incidences of recall. Patient consents to proceed with general anesthesia. Risk of > 500 ml blood loss (7ml/kg in children): No Medications/Allergies Home Medications Medication Instructions Recorded Confirmed Last Taken Type acetaminophen 325 mg capsule 325 mg PO Q4H PRN #60 cap 08/26/21 11/23/21 Unknown Rx ibuprofen 800 mg tablet 800 mg PO TID PRN #60 tab 08/26/21 11/23/21 Unknown Rx Allergies Allergy/AdvReac Type Severity Reaction Status Date / Time No Known Allergies Allergy Verified 11/23/21 07:57 [facility] Anesthesia Medical History Caries involving multiple surfaces of tooth Migraine Surgical History History of section 2006, 2010, 2012, 2016 Family History Mother Hypertension Stroke Clotting disorder Denies family history of Colon cancer Ovarian cancer Diabetes Heart disease Hyperlipidemia Breast cancer Anesthesia complication Bleeding disorder Uterine cancer Thyroid condition Social History Adopted: No Caregiver/support person: No Highest education level completed: High School Graduate service: No Current occupational status: employed Female Reproductive History Date of last menstrual period: 05/18/21 Para: 4 Spontaneous abortions: Yes (2) Data Anesthesia Cardiac Studies: No Data to Display
[2021-11-25] VITALS (24 sets, daily range): BP systolic 103–137; BP diastolic 59–84; PULSE 60–99; RESP 14–31; TEMP 36.2–36.9; O2SAT 94–100; BMI 28.3
[2021-11-25] MEDS: sodium chloride 0.9% 500 ML IV (06:23)
[2021-11-25] MEDS: scopolamine 1.5 Patch 1 PATCH TRANSDERMA (06:30)
--- NOTE | 2021-11-25 06:42 | W.PM.OPSUD ---
Surgery/Procedure H&P Update DATE OF PROCEDURE: November 25, 2021 DATE H&P PERFORMED: 11/23/21 H&P UPDATE INFORMATION: I have reviewed H&P completed within last 30 days, I have examined patient prior to procedure and No changes to prior documentation PREOP DIAGNOSIS: Pelvic pain, endometriosis, dyspareunia PLANNED PROCEDURE: Operation Date: 11/25/21 07:00 Proposed Procedures p Total Abdominal Hysterectomy 57193/R10.2/N94.10/N80.9(Not Applicable) - Nazario Jo MD
--- NOTE | 2021-11-25 06:54 | P.ANESUD_ITS ---
Pre-Anesthetic Update Pre-Anesthetic Assessment: Date of Surgery/Procedure: 11/25/21 Preop Vidhya gnosis: Pelvic pain, endometriosis, dyspareunia Proposed Procedure: Operation Date: 11/25/21 07:00 Proposed Procedures p Total Abdominal Hysterectomy 95712/R10.2/N94.10/N80.9(Not Applicable) - Nazario Jo MD Any changes to Pre-Anesthetic Assessment?: No Last Intake: Intake Last Liquid Date 11/25/21 Last Liquid Time 00:00 Last Solid Date 11/24/21 Last Solid Time 21:00 Vitals: Temperature 97.6 F 11/25/21 06:18 Temperature Source Temporal Artery S can 11/25/21 06:18 Pulse Rate 65 11/25/21 06:18 Respiratory Rate 16 11/25/21 06:18 Blood Pressure 119/68 11/25/21 06:18 Blood Pressure Laly n 85 11/25/21 06:18 Pulse Oximetry 99 11/25/21 06:18 Oxygen Delivery Me thod 11/25/21 06:18 Exam: Pre-Anes Outpt Exam: alert, oriented x 3, clear to auscultation bilaterally and regular rate & rhythm Cardiac Studies: No Data to Display
[2021-11-25] MEDS: ceFOXitin 2,000 MG in sodium chloride 0.9% (plus) 50 ML 100 MG IV (06:55)
--- NOTE | 2021-11-25 08:25 | P.OP_ITS ---
Operative Report Date of procedure: November 25, 2021 Pre-op diagnosis: Preop Diagnosis Pelvic pain, endometriosis, dyspareunia Post-op diagnosis: Same as above Post-op findings: Bladder adhesions Procedure done: Total abdominal hysterectomy Pathology: Uterus, left and right fallopian tubes Surgeon: Nazario Jo MD Estimated blood loss (mL): 100 IV fluids (mL): 800 Urine output (mL): 50 Complications: none Findings: Normal size uterus, bladder adhesions Procedure: The patient was taken to the operating room, and after adequate level of general anesthesia was achieved, the patient was placed in the Trendelenburg position, prepped and draped in the usual sterile fashion. Subsequently, a Pfannenstiel incision was made and the incision was taken down to the fascia. The fascia was opened up sharply. The fascia was extended to the length of the incision using the Quintanilla scissors. At this time, the rectus muscles were dissected from the fascia superiorly and inferiorly to the symphysis pubis. The midline rectus muscles were opened sharply and extended superiorly and inferiorly. The peritoneum was visualized, grasped, opened sharply, and extended superiorly and inferiorly towards the bladder. The abdominal contents were packed superiorly away from the operative site using the lap packs. At this time, the pelvic organs were noted. The inferior and superior blades were placed in place on the Lev self-retaining retractor. Bowel was packed away from the operative site. The fundus of the uterus was then grasped with a triple-tooth tenaculum and retracted out of the pelvic cavity into the abdominal site. At this point, Deepthi clamps were placed in both right and left adnexal regions. Subsequently, using the Enseal cautery unit, the round ligaments were grasped, cauterized, and dissected. The bladder flap was then formed and the bladder flap was pushed away down anteriorly over the lower uterine segment, pushed away from the operative site on both the right and left sides. Subsequently, the posterior leaf of the broad ligament was opened sharply and the Enseal instrument was then placed below the level of the ovary in both the right and left side, care being taken not to damage bowel or uterus and the infundibulopelvic ligament was then grasped, cauterized, and again dissected. Further dissection of the broad li gament was carried down posteriorly towards the uterine vessels. The bladder was pushed inferiorly down towards the vagina. Subsequently, the uterine vessels were then grasped again with the Enseal machine, cauterized, and dissected. The cardinal ligaments were further grasped, dissected, and suture ligated, again with the Enseal machine. At that point, the Enseal machine instrument was stopped and straight Zeppelin clamps were used on the cardinal ligaments down towards the uterosacral ligaments. The cardinal ligaments were grasped, dissected with a scalpel and then ligated with transfixion sutures with #1 Vicryl suture down to the uterosacral ligaments. The uterosacral ligaments were grasped, dissected, and suture ligated again with #1 Vicryl suture and transfixion sutures. At that time, the bladder had been pushed over the vagina and at this time right-angle Zeppelin clamps were placed on the vagina at the level of the cervix, and using the Michael scissors, the cervix was dissected away from the vagina. At this time, the vaginal cuff was then closed using interrupted sutures of #1 Vicryl suture from the midline to each lateral corner. After the good hemostasis had been achieved in the vaginal cuff, both the right and left adnexa was visualized and no more bleeding was noted. The cuff was intact with no bleeding noted. The bladder was visualized and no bleeding was noted. Seprafilm was then placed over the vaginal cuff. The [place] self- retaining retractor was removed as well as the anterior and inferior blades. The lap packs were removed, and at this time, general closure of the abdomen was carried out. The peritoneum was closed with a 2-0 Vicryl suture and continuous running suture. The fascia was closed using a #1 Vicryl suture from each corner to the midline. Subcutaneous tissue was cauterized. No bleeding was noted. The subcutaneous tissue was then reapproximated using plain sutures and interrupted sutures, and the skin was closed with Insorbs subcuticular absorbable jaclyn. Exparel was infiltrated at the incision site for pain management. The patient tolerated the procedure well and was transferred to the recovery room in excellent condition. The patient returned to the floor for recovery.
[2021-11-25] MEDS: HYDROmorphone 1 mg/mL INJ 1 mL 0.5 MG IVP ×2 (08:39→09:14)
[2021-11-25] MEDS: meperidine 50 mg/mL INJ 12.5 MG IVP (08:49)
--- NOTE | 2021-11-25 09:10 | SUR.PHASEI ---
0830 PT TO PACU 5 PT AWAKES TO VOICE RESTLESS, MOANING, C/O OF PAIN GOOD RESP NOTED PT PLACED ON 3LNC SATS 99% MONITOR SR NO EXTOPY, ABODMEN SOFT WITH LOWER HORIZONTAL INCISION D/I WITH SKIN GLUE IV TO RT AC #20 WITH NS 150ML UP AT KVO RATE PER GRAVITY. BILAT SCDS ON , MACKEY TO DD WITH LT YELLOW GREEN URINE, PT RECIEVED METHYLINE BLUE IN OR ID BRACELET TO LT WRIST , PT ID'D WITH 2 IDENTIFIERS SEE PAIN MEDS GIVEN IN OR, WARM BLANKETS X 4 TO PT. 0847 PT RECIEVED PAIN MED EARLIER, PT NOW SHIVERING UNCONTOLLED, SEE PAIN MED GIVEN FOR SHIVERING AND PAIN OF 02/22 0914 PT SLEEPING EARLIER, NOW AWAKES MOANS AND RATES PAIN AT 10 SEE PAIN MED GIVEN, MONITOR UNCHANGED ABODOMEN SOFT NO BLEEDING OR VAGINAL BLEEDING NOTED.
--- NOTE | 2021-11-25 09:31 | SUR.PHASEI ---
pt resting quietly, pt family updated and will meet pt in OB WAITING AREA, VSS ABDOMEN UNCHANGED MACKEY PATENT, REPORT CALLED AND WILL DO HANDOFF AT BEDSIDE PT TO OB 9 PER CART.
[2021-11-25 09:38] LABS: OR HCG Qualitative Urine Negative (Negative)
[2021-11-25] MEDS: dextrose 5%-lactated ringers 1,000 ML 125 ML IV ×2 (10:16→17:26)
[2021-11-25] MEDS: docusate sodium 100 mg Capsule PO ×2 (11:30→17:26)
[2021-11-25] MEDS: hyDROXYzine 25 mg Capsule PO (11:30)
--- NOTE | 2021-11-25 12:42 | ANE.PACU2 ---
Inpatient post-anesthesia follow up: Airway intact: Yes Vital signs: Temperature 98.4 F Pulse Rate 77 Respiratory Rate 15 Blood Pressure 120/74 Pulse Oximetry 95 Oxygen Delivery Me thod Room Air Oxygen Flow Rate 3 Fraction of Inspir ed Oxygen Hydration adequate: Yes Nausea and vomiting: No Pain level: 4 Mental status: Baseline
[2021-11-25] MEDS: ketorolac 30 mg/mL INJ IVP ×2 (15:05→21:12)
--- NOTE | 2021-11-25 17:03 | PC.NURSE ---
Patient up to chair with standby assist. Patient tolerates activity well. ARNULFO RN
[2021-11-25] MEDS: HYDROcodone-acetaminophen 5-325 mg Tablet PO (19:29)
[2021-11-26 04:54] VITALS: BP 112/60; PULSE 54; RESP 15; O2SAT 98
[2021-11-26 04:59] LABS: Hematocrit 32.7 % (37.0-47.0); Hemoglobin 11.1 g/dL (11.5-15.3); Mean Corpuscular HGB Conc 33.9 g/dL (30.0-36.0); Mean Corpuscular Hemoglobin 30.7 pg (28.0-34.0); Mean Corpuscular Volume 90.3 fl (81-99); Mean Platelet Volume 11.2 fL (7.4-10.4); Platelet Count 179 10^3/cmm (130-400); Red Blood Count 3.62 10^6/uL (4.1-5.3); Red Cell Distribution Width 11.9 % (12.1-15.1); White Blood Count 12.2 10^3/uL (4.0-10.0)
[2021-11-26] MEDS: docusate sodium 100 mg Capsule PO (08:27)
[2021-11-26] MEDS: ibuprofen 800 mg tablet PO (08:27)
[2021-11-26 10:45] VITALS: BP 116/73; PULSE 78; RESP 14; TEMP 36.8; O2SAT 98
--- NOTE | 2021-11-26 11:02 | PM.OBGYDC ---
Discharge Providers NATIONAL ACCOUNTS SALES Date of Admission: 11/25/21 08:27 Date of Discharge: 11/26/21 Attending Provider at Admission: Nazario Jo MD Attending Provider at Discharge: Nazario Jo MD Primary NATIONAL ACCOUNTS SALES: Nazario Jo MD Primary Care Provider: GELA Raines Reason for Visit Reason for Visit: Brief History: Mrs. Beckman 36-year-old female with a history of chronic pelvic pain, endometriosis and dyspareunia. Hospital Course Hospital Course Mrs. Beckman 36-year-old female admitted for planned total abdominal hysterectomy due to previous surgical history of The total vaginal hysterectomy was performed without complications without complications. Overnight postop observation was uneventful. She is afebrile and hemodynamically stable postoperative day 1. Tolerating diet well. Ambulating without difficulty. Passing flatus. Counseled regarding pelvic rest for 6 weeks (no sex, no tampons, no vaginal douches). Return to the emergency room if any fever, increased bleeding or pain. Physical Exam Narrative: GA: Alert and oriented ?3. HEENT: WNL. Heart: Regular rate and rhythm. Lungs: Clear to auscultation bilaterally. Abdomen: Bowel sounds present, nontender. MOHEL: No bleeding. Extremities: No edema, no cyanosis, no calves pain. Urinary Catheter Management: Martin: Cath Placed During This Visit: yes, but has since been removed by the nurse Reason for Continuing Indwelling Catheter: Decision to DC Catheter Urinary Catheter Date of Insertion: 11/25/21 Urinary Catheter Time of Insertion: 07:05 Date Urinary Catheter Removed: 11/26/21 Time Urinary Catheter Discontinued: 04:45 History History History 7 Term 4 Miscarriages/Ectopic 3 0 Living Children 4 Discharge Data Studies Completed and Pending Pending at discharge Category Date Time Status Pathology: Surgical [PTH] Routine Pth 11/25/21 08:33 Received Laboratory Results WBC 12.2 10^3/uL (4.0-10.0) H 11/26/21 04:42 RBC 3.62 10^6/uL (4.1-5.3) L 11/26/21 04:42 Hgb 11.1 g/dL (11.5-15.3) L 11/26/21 04:42 Hct 32.7 % (37.0-47.0) L 11/26/21 04:42 MCV 90.3 fl (81-99) 11/26/21 04:42 MCH 30.7 pg (28.0-34.0) 11/26/21 04:42 MCHC 33.9 g/dL (30.0-36.0) 11/26/21 04:42 RDW 11.9 % (12.1-15.1) L 11/26/21 04:42 Plt Count 179 10^3/cmm (130-400) 11/26/21 04:42 MPV 11.2 fL (7.4-10.4) H 11/26/21 04:42 Urine HCG, Qual Negative (Negative) 11/25/21 06:39 Blood Type O Positive 11/25/21 06:23 Rho(D) Type Positive 11/25/21 06:23 Antibody Screen Negative 11/25/21 06:23 Vitals Last Vital Signs Temp 98.2 F 11/26/21 10:45 Pulse 78 11/26/21 10:45 Resp 14 11/26/21 10:45 BP 116/73 11/26/21 10:45 Pulse Ox 98 11/26/21 10:45 Discharge Plan Discharge Patient Disposition: Home Condition: Stable Prescriptions: New hydrocodone-acetaminophen 5-325 mg tablet 1 tab PO Q4H PRN (Reason: pain) Qty: 20 0RF acetaminophen 325 mg capsule 325 mg PO Q4H PRN (Reason: fever or pain) Qty: 60 0RF ibuprofen 800 mg tablet 800 mg PO TID PRN (Reason: pain) Qty: 60 0RF Continued ibuprofen 800 mg tablet 800 mg PO TID PRN (Reason: pain) Qty: 60 0RF acetaminophen 325 mg capsule 325 mg PO Q4H PRN (Reason: fever or pain) Qty: 60 0RF Discharge Orders: Discharge Order (Routine); Ordered 11/26/21 Ordered By: Nazario Jo Referrals: Nazario Jo MD [Physician] - 2 weeks Discharge Diet: Usual diet Discharge Activity: Limit activity as instructed Patient Instructions: Opioid Safety Activity Restrictions/Additional Instructions: 1. Please call [facility] clinic on next working day to make your post-operative appointment in 2 weeks. 2. Please stay home until you come back to the clinic on first post-operative check up. 3. Please follow instructions on your medications CAREFULLY. 4. If you have abdominal incision, do not cover it unless dressing is necessary because of drainage. OK to shower, but avoid bath. Leave steri-strips until they fall off. If they are still on one week after surgery, you may remove them. 5. If you had vaginal surgery or vaginal repair, Dr. Jo may instruct you to take SITZ bath. 6. Yellow, blood tinged odorous vaginal discharge is usually normal after hysterectomy or vaginal surgeries. 7. No sexual intercourse, tampons, or douches until you are completely released from the post-operative care. 8. Avoid constipation by eating right and maybe using some Metamucil or Milk of Magnesia. 9. All prescription refills are given during the working hours. Please do no wait till it runs out. Call the clinic at [phone] before your medication runs out. The clinic will get in touch with your doctor to prescribe medications if necessary. 10. Please remain within 40 mile radius from our hospital because emergencies do happen now and then during the post-operative period. 11. If you have stairs at home, take one step at a time slowly and minimize the number of trips. It helps to stay in one floor for the next few days. No lifting except what you can lift by one hand until you are released from the post-operative care. 12. Driving is discouraged until you are well healed. It may be 3-4 weeks before you feel strong enough to drive. You should be able to turn and look through the rear window without pain and you should be able to push the brake pedal very hard without pain before you drive. No fast rules, but SAFETY should be your primary concern. DO NOT drive if you are on sedating medications such as narcotics. 13. Call the clinic (during working hours) to make urgent appointment or go to the Emergency room, if any of the following occurs: i. Vaginal bleeding becomes heavy, more than a period. ii. Incision becomes red and sore, or drains pus. iii. Your temperature is over 100.4 or you have chill. iv. IV site becomes red and swollen (a little ``knot?? is usually OK) v. Persistent nausea and vomiting vi. Persistent constipation or diarrhea vii. Rash or allergic reaction to medications. Discharge Attestations NATIONAL [employer]OUNTS SALES Time Spent in Discharge Care*: greater than 30 min Coding Level of Care Code Acute Clinical Systems Educator for Osiel Kunz
[2021-11-26 11:54] VITALS: BP 113/62; PULSE 78; RESP 16; TEMP 36.5
== END 2021-11-26 11:23 | disposition home or self-care (01) | DRG 983 ==
LOC: OBGYN 08:28
PROVIDERS: Anesthesiology; Admitting Provider Obstetrics & Gynecology; PCP Nurse Practitioner Family; Visit Provider Obstetrics & Gynecology
PROC: 0UT90ZZ Resection of Uterus, Open Approach (ICD-10-PCS; CPT 58150; principal; 2021-11-25 07:00)
DX: N32.89 Other specified disorders of bladder (principal); N94.10 Unspecified dyspareunia; R10.2 Pelvic and perineal pain; G89.29 Other chronic pain; F17.200 Nicotine dependence, unspecified, uncomplicated; N80.9 Endometriosis, unspecified; R23.2 Flushing; Z98.890 Other specified postprocedural states
CPT/HCPCS: 36415; 51702; 81025; 84703; 85027; 86850; 86900; 88307; C9290; J0694; J1100; J1170; J1200; J1885; J2175; J2250; J2405; J2704; J3010; J3490; J7040; Q9968

== ENCOUNTER → 2022-01-05 10:05 | Outpatient (BNVA) | payer BC, MEDICAID, SELFPAY | PROVIDERS: PCP Nurse Practitioner Family; Visit Provider Obstetrics & Gynecology | DX: R23.2 Flushing (principal); Z48.816 Encounter for surgical aftercare following surgery on the genitourinary system | CPT/HCPCS: 83001 ==

== ENCOUNTER → 2022-03-17 09:48 | Outpatient (BNVA) | payer BC, MEDICAID, SELFPAY | PROVIDERS: PCP Nurse Practitioner Family; Visit Provider Nurse Practitioner Family | DX: R55 Syncope and collapse (principal); Z13.6 Encounter for screening for cardiovascular disorders; F41.9 Anxiety disorder, unspecified; F32.A Depression, unspecified; Z63.5 Disruption of family by separation and divorce | CPT/HCPCS: 80053; 80061; 84443; 85025 ==

== ENCOUNTER → 2022-08-30 15:11 | Outpatient (BNVA) | payer BC, MEDICAID, SELFPAY | PROVIDERS: PCP Nurse Practitioner Family; Visit Provider Nurse Practitioner Family | DX: R10.9 Unspecified abdominal pain (principal) | CPT/HCPCS: 74018 ==

== ENCOUNTER 2022-08-30 16:39 | Emergency (ER) | payer BC, MEDICAID, SELFPAY ==
[2022-08-30 16:53] VITALS: BP 166/92; PULSE 90; RESP 17; TEMP 36.6; O2SAT 100; BMI 25.7
[2022-08-30 17:51] LABS: Basophils # 0.1 10^3/uL (0.0-0.1); Basophils % 0.8 %; Eosinophils % 0.5 %; Hematocrit 42.4 % (37.0-47.0); Lymphocytes # 1.8 10^3/uL (0.8-4.8); Lymphocytes % 22.5 %; Mean Corpuscular Hemoglobin 30.1 pg (28.0-34.0); Mean Corpuscular Volume 91.2 fl (81-99); Mean Platelet Volume 10.6 fL (7.4-10.4); Monocytes # 0.4 10^3/uL (0.2-0.9); Monocytes % 5.1 %; Neutrophils # 5.59 10^3/uL (1.8-7.7); Neutrophils % 70.7 %; Nucleated Red Blood Cells % 0 %; Platelet Count 251 10^3/cmm (130-400); Red Blood Count 4.65 10^6/uL (4.1-5.3); Red Cell Distribution Width 12.2 % (12.1-15.1); White Blood Count 7.9 10^3/uL (4.0-10.0)
[2022-08-30 18:11] LABS: Alanine Aminotransferase 12 U/L (0-33); Albumin Level 4.2 g/dL (3.5-5.2); Alkaline Phosphatase 80 U/L (35-105); Anion Gap 12.1 (5-19); Aspartate Amino Transferase 20 U/L (0-32); Blood Urea Nitrogen 4 mg/dL (6-20); Carbon Dioxide 26 mmol/L (22-29); Chloride 101 mmol/L (98-107); Globulin 3.1 g/dL (1.3-4.6); Glomerular Filtration Rate 113.8 mL/min (90-130); Glucose 92 mg/dL (65-115); Lipase 17 U/L (13-60); Osmolality Calculated 277 mOsm/kg (285-295); Potassium 4.1 mmol/L (3.5-5.1); Sodium 135 mmol/L (136-145); Total Bilirubin 1.1 mg/dL (0.15-1.2); Total Protein 7.3 g/dL (6.6-8.7)
[2022-08-30 18:20] LABS: HCG, Serum Qual Negative (Negative)
--- NOTE | 2022-08-30 22:03 | ED_ITS ---
HPI - Abdominal Pain General: Chief Complaint: Abdominal Pain Stated Complaint: LRQ abd pain Time Seen by Provider: 08/30/22 22:03 History of Present Illness: 37-year-old female comes in today for persistent right lower quadrant pain that started last night. Patient reports no nausea or vomiting or fever. Patient appears in mild to moderate pain. Patient has a history of a hysterectomy abdominal surgery. Patient does have her gallbladder and appendix still. Patient had a hysterectomy done in the last 2 years for signs of cervical cancer. Patient reports not able to eat today due to the pain but has been able to drink liquids and hold them down. Associated Symptoms: Reports chills and nausea; Denies constipation, diarrhea, fever(s) and vomiting Review of Systems General: Reports: 10 or more systems reviewed and unremarkable except in HPI and below Const: Reports: chills; Denies: fever(s) ENMT: Denies: throat pain Card: Denies: chest pain Resp: Denies: dyspnea GI: Reports: abdominal pain (Right lower quadrant) and nausea; Denies: vomiting, diarrhea or constipation : Denies: flank pain or difficulty voiding Musc: Denies: neck pain or back pain Skin/Breast: Denies: rash Neuro: Denies: headache(s) PFSH ED PFSH: Medical History Aftercare following surgery of the genitourinary system Caries involving multiple surfaces of tooth Migraine Surgical History H/O laparoscopy 08/26/2021- diagnostic laparoscopy, performed by Dr. Jo at [facility] H/O: hysterectomy 11/25/2021: MORRO performed by Dr. Jo at [facility] History of section 2006, 2010, 2012, 2016 Family History Mother Hypertension Stroke Clotting disorder Denies family history of Colon cancer Ovarian cancer Diabetes Heart disease Hyperlipidemia Breast cancer Anesthesia complication Bleeding disorder Uterine cancer Thyroid condition Social History Smoking and tobacco status: current every day smoker Adopted: No Caregiver/support person: No Highest education level completed: High School Graduate service: No Current occupational status: employed Female Reproductive History: Para: 4 Spontaneous abortions: Yes (2) Physical Exam Const: COMMON NORMALS: alert HENMT: COMMON NORMALS: normocephalic HEAD & SCALP: normocephalic MOUTH: Normal oral and palatal mucosa present Neck/C-Spine: COMMON NORMALS: full ROM Resp: COMMON NORMALS: normal respiratory effort and clear to auscultation bilaterally AUSCULTATION: clear to auscultation bilaterally Cardio: COMMON NORMALS: regular rate and regular rhythm RATE: regular rate RHYTHM: regular rhythm GI: COMMON NORMALS: Soft to palpation PALPATION: Yes Soft to palpation and Yes Tenderness to palpation present (GI) Details: RLQ : COMMON NORMALS: Yes no CVA tenderness BLADDER/KIDNEY EXAM: Yes no CVA tenderness Back/Pelvis: COMMON NORMALS: no CVA tenderness Extremity: COMMON NORMALS: no pedal edema Neuro: SENSORIUM/ORIENTATION: Yes alert Skin: COMMON NORMALS: turgor normal GENERAL SKIN EXAM: turgor normal Course Vital Signs: Vital signs: Vital Signs Temperature 97.9 F 08/30/22 16:53 Pulse Rate 98 08/30/22 22:10 Respiratory Rate 16 08/30/22 22:16 Blood Pressure 120/71 08/30/22 22:10 Pulse Oximetry 98 08/30/22 22:16 Oxygen Delivery Me thod Room Air 08/30/22 22:10 MDM - Abdominal Pain Medical Decision Making 37-year-old female comes in today for concerns of right lower quadrant pain starting last night. Patient was evaluated in primary care clinic and was recommended to come to the ER for further evaluation and treatment. On exam patient has tenderness to the right lower quadrant. Normal active bowel sounds. Abdomen soft. Vital signs are normal except for some elevation in blood pressure. Patient does have a history of hysterectomy. Differential diagnosis includes but not limited to ovarian cyst, appendicitis, diverticulitis, renal colic. CBC and CMP was unremarkable. CT of the abdomen and pelvis noted some mild prominent fluid in the small bowel may be suggesting of enteritis. Patient has small ovarian cyst on the left side. No signs of appendicitis was noted. Reviewed exam with patient with recommendations for treatment for enteritis. Patient was encouraged to drink plenty of fluids use Zofran for nausea, and hydrocodone for severe pain. Patient was recommended to follow-up with primary care as needed, or return to ER for worsening symptoms such as high fever, inability to hold fluids down, or blood in vomit or stool. Patient reported understanding and agreed to plan. Lab Data 08/30/22 17:40 08/30/22 17:40 Labs/Radiology: Radiology Impressions Abdomen/Pelvis CT 08/30/22 22:03 IMPRESSION: 1. Mildly prominent fluid in the small bowel without dilation may reflect an enteritis in the appropriate clinical setting. 2. Left ovary 14 mm peripherally enhancing cyst suggestive of a partially collapsed follicle. Laboratory Results WBC 7.9 10^3/uL (4.0-10.0) 08/30/22 17:40 RBC 4.65 10^6/uL (4.1-5.3) 08/30/22 17:40 Hgb 14.0 g/dL (11.5-15.3) 08/30/22 17:40 Hct 42.4 % (37.0-47.0) 08/30/22 17:40 MCV 91.2 fl (81-99) 08/30/22:40 MCH 30.1 pg (28.0-34.0) 08/30/22 17:40 MCHC 33.0 g/dL (30.0-36.0) 08/30/22 17:40 RDW 12.2 % (12.1-15.1) 08/30/22 17:40 Plt Count 251 10^3/cmm (130-400) 08/30/22 17:40 MPV 10.6 fL (7.4-10.4) H 08/30/22 17:40 Neut % (Auto) 70.7 % 08/30/22 17:40 Lymph % (Auto) 22.5 % 08/30/22 17:40 [place] % (Auto) 5.1 % 08/30/22 17:40 Eos % (Auto) 0.5 % 08/30/22 17:40 Baso % (Auto) 0.8 % 08/30/22 17:40 Neut # (Auto) 5.59 10^3/uL (1.8-7.7) 08/30/22 17:40 Lymph # (Auto) 1.8 10^3/uL (0.8-4.8) 08/30/22 17:40 Nicol[place] # (Auto) 0.4 10^3/uL (0.2-0.9) 08/30/22 17:40 Eos # (Auto) 0.0 10^3/uL (0.0-0.8) 08/30/22 17:40 Baso # (Auto) 0.1 10^3/uL (0.0-0.1) 08/30/22 17:40 Nucleated RBC % (auto) 0 % 08/30/22:40 Nucleated RBCs # 0.0 /100WBC 08/30/22 17:40 Sodium 135 mmol/L (136-145) L 08/30/22 17:40 Potassium 4.1 mmol/L (3.5-5.1) 08/30/22:40 Chloride 101 mmol/L (98-107) 08/30/22:40 Carbon Dioxide 26 mmol/L (22-29) 08/30/22 17:40 Anion Gap 12.1 (5-19) 08/30/22 17:40 BUN 4 mg/dL (6-20) L 08/30/22:40 Creatinine 0.6 mg/dL (0.5-0.9) 08/30/22 17:40 GFR Calculation 113.8 mL/min (90-130) 08/30/22:40 Glucose 92 mg/dL (65-115) 08/30/22 17:40 Calculated Osmolality 277 mOsm/kg (285-295) L 08/30/22 17:40 Calcium 9.0 mg/dL (8.5-10.5) 08/30/22 17:40 Total Bilirubin 1.1 mg/dL (0.15-1.2) 08/30/22 17:40 AST 20 U/L (0-32) 08/30/22 17:40 ALT 12 U/L (0-33) 08/30/22 17:40 Alkaline Phosphatase 80 U/L (35-105) 08/30/22 17:40 Total Protein 7.3 g/dL (6.6-8.7) 08/30/22 17:40 Albumin 4.2 g/dL (3.5-5.2) 08/30/22 17:40 Globulin 3.1 g/dL (1.3-4.6) 08/30/22 17:40 Lipase 17 U/L (13-60) 08/30/22 17:40 HCG, Qual Negative (Negative) 08/30/22 17:40 Discharge Plan Discharge Patient Disposition: Home Clinical Impression: Enteritis Condition: Stable Prescriptions: New hydrocodone-acetaminophen 5-325 mg tablet 1 tab PO Q8H PRN (Reason: pain (scale score 7-10)) Qty: 7 0RF ondansetron 4 mg tablet,disintegrating 4 mg PO Q8H PRN (Reason: nausea and vomiting) Qty: 7 0RF No Action citalopram 10 mg tablet 10 mg PO DAILY Qty: 30 5RF chlorhexidine gluconate [Peridex] 0.12 % mouthwash 15 ml buccal BID Qty: 473 5RF sulfamethoxazole-trimethoprim [Bactrim DS] 800-160 mg tablet 1 tab PO BID Qty: 20 0RF trazodone 50 mg tablet 50 mg PO DAILY PRN (Reason: sleep) Qty: 30 2RF Rx Instructions: start 1/2 tab buspirone 15 mg tablet 15 mg PO BID Qty: 60 5RF Rx Instructions: may increase to 2 tabs to equal 30 mg if needed ibuprofen 800 mg tablet 800 mg PO TID PRN (Reason: pain) Qty: 60 0RF acetaminophen 325 mg capsule 325 mg PO Q4H PRN (Reason: fever or pain) Qty: 60 0RF Discharge Orders: Discharge ED (Routine); Ordered 08/30/22 Ordered By: Foreign Benson Referrals: Karen Dean FNP-C [Primary Care Provider] - Discharge Diet: Advance as tolerated Discharge Activity: Increase activity as tolerated Patient Instructions: Enteritis (ED), Opioid Safety Activity Restrictions/Additional Instructions: Drink plenty of water and fluids. Use ondansetron 4 mg every 8 hours as needed for nausea or vomiting. Use hydrocodone for severe pain. Use acetaminophen or ibuprofen for mild pain. Most often enteritis is secondary to a viral syndrome and will resolve within 3 to 5 days. Diarrhea may occur with it. Follow-up with primary care as needed. Return to ED for worsening symptoms such as high fever greater than 100.4, inability to hold fluids down, or blood in vomit or stool. Coding Level of Care Code ED Warehouse Lead for Osiel Kunz
--- NOTE | 2022-08-30 22:03 | CTR_ITS ---
PROCEDURE INFORMATION: Exam: CT Abdomen And Pelvis With Contrast Exam date and time: 08/30/2022 10:38 PM Age: 37 years old Clinical indication: Abdominal pain; Localized; Right lower quadrant (rlq); Prior surgery; Surgery type: Hysterectomy. Csection; Patient HX: C/O rlq pain; Additional info: Rlq pain, R/O infection abscess TECHNIQUE: Imaging protocol: Computed tomography of the abdomen and pelvis with contrast. Radiation optimization: All CT scans at this facility use at least one of these dose optimization techniques: automated exposure control; mA and/or kV adjustment per patient size (includes targeted exams where dose is matched to clinical indication); or iterative reconstruction. Contrast material: OMNI 350; Contrast volume: 100 ml; Contrast route: INTRAVENOUS (IV); REPORTING DATA: Count of CT and Cardiac NM exams in prior 12 months: This patient has received 0 known CTs and 0 known cardiac nuclear medicine studies in the 12 months prior to the current study. COMPARISON: CT abdomen pelvis w con* [id number] 07/01/2021 10:33 AM RADIATION DOSE METRICS: Total DLP (mGy-cm): 416.99 FINDINGS: Liver: Normal. No mass. Gallbladder and bile ducts: Normal. No calcified stones. No ductal dilation. Pancreas: Normal. No ductal dilation. Spleen: Normal. No splenomegaly. Adrenal glands: Normal. No mass. Kidneys and ureters: Normal. No hydronephrosis. Stomach and bowel: Mildly prominent fluid in the small bowel without dilation may reflect an enteritis in the appropriate clinical setting. Appendix: No evidence of appendicitis. Intraperitoneal space: Unremarkable. No free air. No significant fluid collection. Vasculature: Unremarkable. No abdominal aortic aneurysm. Lymph nodes: Unremarkable. No enlarged lymph nodes. Urinary bladder: Unremarkable as visualized. Reproductive: Left ovary 14 mm peripherally enhancing cyst suggestive of a partially collapsed follicle. Bones/joints: Unremarkable. No acute fracture. Soft tissues: Unremarkable. CT/CT abdomen pelvis w con* [id number] IMPRESSION: 1. Mildly prominent fluid in the small bowel without dilation may reflect an enteritis in the appropriate clinical setting. 2. Left ovary 14 mm peripherally enhancing cyst suggestive of a partially collapsed follicle.
[2022-08-30 22:10] VITALS: BP 120/71; PULSE 98; RESP 16; O2SAT 98; O2SAT 99
[2022-08-30] MEDS: sodium chloride 0.9% 500 ML 999 ML IV (22:15)
[2022-08-30 22:16] VITALS: RESP 16; O2SAT 98
[2022-08-30] MEDS: morphine 4 mg/mL SDV 1 mL IVP (22:16)
[2022-08-30] MEDS: ondansetron 2 mg/ML SDV 2 mL 4 MG IVP (22:16)
[2022-08-30] MEDS: iohexol 350 mg/mL 500 mL Btl (per mL) IV (22:41)
[2022-08-30 23:31] LABS: Add Urine Microscopic? YES; Bilirubin Urine Neg (Negative); Blood Urine 2+ (Negative); Glucose Urine UA Norm (Normal); Ketones Urine Negative (Negative); Leukocyte Esterase Urine 2+ (Negative); Nitrate Urine Negative (Negative); Protein Urine Trace (Negative); Urine Appearance Hazy (CLEAR); Urine Color Yellow (Yellow); Urobilinogen Urine Norm (Negative); pH Urine 6.5 (5-7)
[2022-08-30 23:32] LABS: Bacteria Urine 2+ /hpf; Squamous Epithelial Cell Urine 0-4 /hpf (0-5); WBC Urine 55-80 /hpf (0-5)
[2022-08-30 23:34] LABS: Add Urine Culture? Yes
[2022-08-30 23:49] VITALS: BP 121/62; PULSE 72; RESP 16; O2SAT 97
== END 2022-08-30 23:50 | disposition home or self-care (01) ==
PROVIDERS: Emergency Medicine; Emergency Provider Nurse Practitioner Family; PCP Nurse Practitioner Family
DX: K52.9 Noninfective gastroenteritis and colitis, unspecified (principal); F17.210 Nicotine dependence, cigarettes, uncomplicated
CPT/HCPCS: 36415; 74177; 80053; 81000; 81001; 83690; 84703; 85025; 87077; 87086; 87184; 87186; 96374; 96375; 99285; J2270; J2405; J7040; Q9967

== ENCOUNTER 2022-09-03 11:37 | Observation (INO) | payer BC, MEDICAID, SELFPAY ==
[2022-09-03] VITALS (34 sets, daily range): BP systolic 93–140; BP diastolic 51–73; PULSE 60–94; RESP 11–23; TEMP 36.8; O2SAT 96–100
--- NOTE | 2022-09-03 12:02 | XRR_ITS ---
PROCEDURE INFORMATION: Exam: XR Chest Exam date and time: 09/03/2022 12:44 PM Age: 37 years old Clinical indication: Other: Near syncope TECHNIQUE: Imaging protocol: Radiologic exam of the chest. Views: 1 view. COMPARISON: CR XR chest 1V portable [id number] 07/06/2020 2:47 PM FINDINGS: Lungs: Unremarkable. No consolidation. Pleural spaces: Unremarkable. No pleural effusion. No pneumothorax. Heart/Mediastinum: Unremarkable. No cardiomegaly. Bones/joints: Unremarkable. XR/XR chest 1V portable [id number] IMPRESSION: No acute findings.
--- NOTE | 2022-09-03 12:03 | ECG_ITS ---
[facility] Test Date: 2022-09-03 Pat Name: Quynh Beckman Department: Room: Gender: Female Folder Seamer: : 1985 Requested By: Anton Wise Order Number: [id number] Soco MD: Júnior Cool M.D. Measurements Intervals [place] Rate: 80 P: 58 MA: 162 QRS: 59 QRSD: 85 T: 61 QT: 377 QTc: 437 Interpretive Statements SINUS RHYTHM Compared to ECG 07/06/2020 14:32:05 T-wave abnormality no longer present Electronically Signed On 09-03-2022 22:07:20 CDT by Júnior Cool M.D. [id number]
--- NOTE | 2022-09-03 12:03 | PC.NURSE ---
PT PLACED ON CONTINUOUS SPO2, NIBP, AND CM.
[2022-09-03 12:12] LABS: Basophils # 0.1 10^3/uL (0.0-0.1); Basophils % 0.8 %; Eosinophils % 0.4 %; Hematocrit 39.4 % (37.0-47.0); Lymphocytes # 1.8 10^3/uL (0.8-4.8); Lymphocytes % 23.6 %; Mean Corpuscular Hemoglobin 30.9 pg (28.0-34.0); Mean Corpuscular Volume 93.6 fl (81-99); Mean Platelet Volume 10.3 fL (7.4-10.4); Monocytes # 0.3 10^3/uL (0.2-0.9); Monocytes % 4.6 %; Neutrophils % 70.2 %; Nucleated Red Blood Cells % 0 %; Platelet Count 263 10^3/cmm (130-400); Red Blood Count 4.21 10^6/uL (4.1-5.3); Red Cell Distribution Width 11.9 % (12.1-15.1); White Blood Count 7.4 10^3/uL (4.0-10.0)
[2022-09-03 12:26] LABS: D Dimer 0.39 ug/mIFEU (0-0.59)
[2022-09-03 12:29] LABS: Alanine Aminotransferase 11 U/L (0-33); Albumin Level 3.5 g/dL (3.5-5.2); Alkaline Phosphatase 65 U/L (35-105); Anion Gap 12.8 (5-19); Aspartate Amino Transferase 10 U/L (0-32); Blood Urea Nitrogen 5 mg/dL (6-20); Calcium 8.1 mg/dL (8.5-10.5); Carbon Dioxide 24 mmol/L (22-29); Chloride 104 mmol/L (98-107); Globulin 2.7 g/dL (1.3-4.6); Glomerular Filtration Rate 95.2 mL/min (90-130); Glucose 89 mg/dL (65-115); Lipase 19 U/L (13-60); Osmolality Calculated 281 mOsm/kg (285-295); Potassium 3.8 mmol/L (3.5-5.1); Sodium 137 mmol/L (136-145); Total Bilirubin 0.5 mg/dL (0.15-1.2); Total Protein 6.2 g/dL (6.6-8.7)
[2022-09-03 12:30] LABS: Troponin(5th) Baseline 6 ng/L (0-10)
[2022-09-03 12:38] LABS: HCG Qualitative Urine. Negative (Negative)
[2022-09-03 12:47] LABS: Urine Color Straw (Yellow)
[2022-09-03 12:48] LABS: Add Urine Microscopic? YES; Bilirubin Urine Neg (Negative); Blood Urine Neg (Negative); Glucose Urine UA Norm (Normal); Ketones Urine Negative (Negative); Leukocyte Esterase Urine 2+ (Negative); Nitrate Urine Negative (Negative); Protein Urine Neg (Negative); Specific Gravity, Urine 1.005 (1.005-1.030); Urine Appearance Clear (CLEAR); Urobilinogen Urine Neg (Negative); pH Urine 7 (5-7)
[2022-09-03 12:50] LABS: Add Urine Culture? No; Bacteria Urine 1+ /hpf; Mucus Urine 1+ /hpf; RBC Urine 0-4 /hpf (0-2); Sperm Urine 1+ /hpf; Squamous Epithelial Cell Urine 15-25 /hpf (0-5); WBC Urine 55-80 /hpf (0-5)
--- NOTE | 2022-09-03 12:52 | ED_ITS ---
HPI - Syncope General: Chief Complaint: Syncope Stated Complaint: LOW BP/ WEAKNESS/ SYNCOPE History of Present Illness: Patient with a history of anxiety, depression, insomnia, endometriosis status post hysterectomy, migraines presents the emergency department with generalized weakness, multiple near syncopal episodes, and hypotension. Patient states that she was seen in the emergency department on Tuesday with abdominal pain, she was diagnosed with a bladder infection and small bowel obstruction and was discharged home with antibiotics. She was feeling better last night, but this morning was feeling very weak. She went to work where she had multiple near syncopal episodes, however she did not syncopized or fall, no head, neck, back trauma. EMS was called by her coworkers, they found her pale and hypotensive with a blood pressure of 66/44. Patient's blood pressure improved with 400 mL of normal saline. Patient denies any fevers, chest pain, shortness of breath, abdominal pain, nausea, vomiting, diarrhea, dysuria, urinary urgency. She does endorse chills and urinary frequency. She states that her bowel movements have been normal since Tuesday. No other modifying factors, no other associated symptoms. Review of Systems General: Reports: 10 or more systems reviewed and unremarkable except in HPI and below PFSH ED PFSH: Medical History Aftercare following surgery of the genitourinary system Caries involving multiple surfaces of tooth Migraine Surgical History H/O laparoscopy 08/26/2021- diagnostic laparoscopy, performed by Dr. Jo at [facility] H/O: hysterectomy 11/25/2021: MORRO performed by Dr. Jo at [facility] History of section 2006, 2010, 2012, 2016 Family History Mother Hypertension Stroke Clotting disorder Denies family history of Colon cancer Ovarian cancer Diabetes Heart disease Hyperlipidemia Breast cancer Anesthesia complication Bleeding disorder Uterine cancer Thyroid condition Social History Smoking and tobacco status: current every day smoker Substance/Drug Use: never Adopted: No Caregiver/support person: No Highest education level completed: High School Graduate service: No Current occupational status: employed Female Reproductive History: Para: 4 Spontaneous abortions: Yes (2) Physical Exam Const: COMMON NORMALS: no acute distress and patient oriented x3 GENERAL APPEARANCE: cooperative, well kempt and ill appearing ORIENTATION/CONSCIOUSNESS: Yes awake HENMT: COMMON NORMALS: normocephalic, atraumatic, hearing grossly normal bilaterally, external ears normal and Normal external nose present HEAD & SCALP: normocephalic and atraumatic FACE & SINUS: normal facial exam NOSE: Normal external nose present EXTERNAL EAR: Yes external ears normal MOUTH: Normal oral and palatal mucosa present and other (Dry mucous membranes) THROAT: posterior oropharynx normal Eye: COMMON NORMALS: Equal, round and reactive pupils present and EOMs intact bilaterally PUPIL: Yes Equal, round and reactive pupils present Neck/C-Spine: COMMON NORMALS: supple GENERAL: Yes normal visual inspection CERVICAL SPINE: No Cervical spine tenderness and No step off deformity Chest: COMMONS NORMALS: normal inspection of the chest Resp: COMMON NORMALS: normal respiratory effort, No retractions, No use of accessory muscles and clear to auscultation bilaterally AUSCULTATION: clear to auscultation bilaterally Cardio: COMMON NORMALS: regular rate and Peripheral pulses 2+ throughout RATE: regular rate PERIPHERAL PULSES: Peripheral pulses 2+ throughout GI: COMMON NORMALS: Normal to inspection, nondistended, normoactive bowel sounds present, Soft to palpation and non-tender PALPATION: Yes Soft to palpation : COMMON NORMALS: Yes no CVA tenderness BLADDER/KIDNEY EXAM: Yes no CVA tenderness Back/Pelvis: COMMON NORMALS: no CVA tenderness and thoracic and lumbar spine normal to inspection THORACIC SPINE/UPPER BACK: Yes normal to inspection LUMBAR SPINE/LOWER BACK: Yes normal to inspection Extremity: COMMON NORMALS: normal to inspection, full ROM and no calf tenderness GENERAL: No clubbing and No cyanosis Neuro: COMMON NORMALS: patient oriented x3, moves all extremities, no focal motor deficits and no sensory deficits noted GAIT: Yes Other gait observations present (Generalized weakness, unsteady gait) Psych: COMMON NORMALS: mental status grossly normal, Normal thought process present, cooperative and activity/motor behavior normal APPEARANCE: Yes well kempt ATTITUDE: Yes calm THOUGHT PROCESS: Normal thought process present Skin: COMMON NORMALS: no rashes or lesions noted GENERAL SKIN EXAM: no rashes or lesions noted Course ED course: Urine cultures from 08/30 x 2 reviewed, pansensitive E. coli Reevaluation(s): Reevaluation #1: Patient coming back from the bathroom, nearly fell in her room, I was present to assist her back into bed, nursing has been advised that the patient is a fall risk. Concerned that the patient is significantly hypovolemic, will order additional IV fluids. Time: 12:15 Reevaluation #2: Patient reevaluated, orthostatic vital signs were positive, patient became symptomatic and hypotensive upon standing and was unable to ambulate. Patient will require observation for further IV fluids. Will order CT abdomen pelvis to rule out pyelonephritis Time: 17:00 Consultations: Consultation #1: Spoke with hospitalist Dr. Urban who excepted the patient for observation Time: 17:38 Vital Signs: Vital signs: Vital Signs Temperature 98.3 F 09/03/22 11:47 Pulse Rate 68 09/03/22 16:38 Respiratory Rate 20 H 09/03/22 11:47 Blood Pressure 108/54 09/03/22 16:38 Pulse Oximetry 99 09/03/22 11:47 Oxygen Delivery Me thod Room Air 09/03/22 11:47 MDM - Syncope Medical Decision Making Patient's recurrent near syncopal episodes are highly concerning. Given her recent diagnosis of UTI, concerned that she has developed pyelonephritis and is having worsening symptoms. GI origin is unlikely since her SBO has resolved. Additional considerations include cardiogenic or neurogenic near syncope, however this appears unlikely given the patient's age and relative health aside from mental health issues. Pulmonary embolism is considered, D-dimer will be obtained. Lab Data 09/03/22 11:55 09/03/22 11:55 Radiology Impressions Chest X-Ray 09/03/22 12:02 IMPRESSION: No acute findings. Laboratory Results WBC 7.4 10^3/uL (4.0-10.0) 09/03/22 11:55 RBC 4.21 10^6/uL (4.1-5.3) 09/03/22 11:55 Hgb 13.0 g/dL (11.5-15.3) 09/03/22 11:55 Hct 39.4 % (37.0-47.0) 09/03/22 11:55 MCV 93.6 fl (81-99) 09/03/22 11:55 MCH 30.9 pg (28.0-34.0) 09/03/22 11:55 MCHC 33.0 g/dL (30.0-36.0) 09/03/22 11:55 RDW 11.9 % (12.1-15.1) L 09/03/22 11:55 Plt Count 263 10^3/cmm (130-400) 09/03/22 11:55 MPV 10.3 fL (7.4-10.4) 09/03/22 11:55 Neut % (Auto) 70.2 % 09/03/22 11:55 Lymph % (Auto) 23.6 % 09/03/22 11:55 [place] % (Auto) 4.6 % 09/03/22 11:55 Eos % (Auto) 0.4 % 09/03/22 11:55 Baso % (Auto) 0.8 % 09/03/22 11:55 Neut # (Auto) 5.20 10^3/uL (1.8-7.7) 09/03/22 11:55 Lymph # (Auto) 1.8 10^3/uL (0.8-4.8) 09/03/22 11:55 [place] # (Auto) 0.3 10^3/uL (0.2-0.9) 09/03/22 11:55 Eos # (Auto) 0.0 10^3/uL (0.0-0.8) 09/03/22 11:55 Baso # (Auto) 0.1 10^3/uL (0.0-0.1) 09/03/22 11:55 Nucleated RBC % (auto) 0 % 09/03/22 11:55 Nucleated RBCs # 0.0 /100WBC 09/03/22 11:55 D-Dimer 0.39 ug/mIFEU (0-0.59) 09/03/22 11:55 Sodium 137 mmol/L (136-145) 09/03/22 11:55 Potassium 3.8 mmol/L (3.5-5.1) 09/03/22 11:55 Chloride 104 mmol/L (98-107) 09/03/22 11:55 Carbon Dioxide 24 mmol/L (22-29) 09/03/22 11:55 Anion Gap 12.8 (5-19) 09/03/22 11:55 BUN 5 mg/dL (6-20) L 09/03/22 11:55 Creatinine 0.7 mg/dL (0.5-0.9) 09/03/22 11:55 GFR Calculation 95.2 mL/min (90-130) 09/03/22 11:55 Glucose 89 mg/dL (65-115) 09/03/22 11:55 Calculated Osmolality 281 mOsm/kg (285-295) L 09/03/22 11:55 Calcium 8.1 mg/dL (8.5-10.5) L 09/03/22 11:55 Total Bilirubin 0.5 mg/dL (0.15-1.2) 09/03/22 11:55 AST 10 U/L (0-32) 09/03/22 11:55 ALT 11 U/L (0-33) 09/03/22 11:55 Alkaline Phosphatase 65 U/L (35-105) 09/03/22 11:55 Troponin T Baseline 6 ng/L (0-10) 09/03/22 11:55 Total Protein 6.2 g/dL (6.6-8.7) L 09/03/22 11:55 Albumin 3.5 g/dL (3.5-5.2) 09/03/22 11:55 Globulin 2.7 g/dL (1.3-4.6) 09/03/22 11:55 Lipase 19 U/L (13-60) 09/03/22 11:55 HCG, Qual Negative (Negative) 09/03/22 12:10 Urine Color Yellow (Yellow) 09/03/22 15:48 Urine Appearance Clear (CLEAR) 09/03/22 15:48 Urine pH 8 (5-7) H 09/03/22 15:48 Ur Specific [place] 1.015 (1.005-1.030) 09/03/22 15:48 Urine Protein Neg (Negative) 09/03/22 15:48 Urine Glucose (UA) Norm (Normal) 09/03/22 15:48 Urine Ketones Negative (Negative) 09/03/22 15:48 Urine Blood Neg (Negative) 09/03/22 15:48 Urine Nitrate Negative (Negative) 09/03/22 15:48 Urine Bilirubin Neg (Negative) 09/03/22 15:48 Prot Sulfosalicylic Acd Negative (Negative) 09/03/22 15:48 Urine Urobilinogen Neg mg/dL (Negative) 09/03/22 15:48 Ur Leukocyte Esterase 2+ (Negative) H 09/03/22 15:48 Urine RBC 0-4 /hpf (0-2) H 09/03/22 15:48 Urine WBC 25-40 /hpf (0-5) H 09/03/22 15:48 Ur Squamous Epith Cells 0-4 /hpf (0-5) H 09/03/22 15:48 Amorphous Sediment Not Reportable 09/03/22 15:48 Urine Bacteria Trace /hpf (NONE) 09/03/22 15:48 Urine Mucus Trace /hpf 09/03/22 15:48 Urine Sperm 1+ /hpf 09/03/22 12:10 Discharge Plan Discharge Patient Disposition: Placed in Observation Clinical Impression: Pyelonephritis, Syncope, near, Orthostatic hypotension Condition: Stable Prescriptions: No Action citalopram 10 mg tablet 10 mg PO DAILY Qty: 30 5RF trazodone 50 mg tablet 50 mg PO DAILY PRN (Reason: sleep) Qty: 30 2RF Rx Instructions: start 1/2 tab buspirone 15 mg tablet 15 mg PO BID Qty: 60 5RF Rx Instructions: may increase to 2 tabs to equal 30 mg if needed nitrofurantoin monohyd/m-cryst [Macrobid] 100 mg capsule 100 mg PO Q12H 7 Days Qty: 14 0RF Rx Instructions: must administer with a meal/food ondansetron 4 mg tablet,disintegrating 4 mg PO Q8H PRN (Reason: nausea and vomiting) Qty: 14 0RF ibuprofen 800 mg tablet 800 mg PO TID PRN (Reason: pain) Qty: 60 0RF acetaminophen 325 mg capsule 325 mg PO Q4H PRN (Reason: fever or pain) Qty: 60 0RF Referrals: Karen Dean FNP-C [Primary Care Provider] - Coding Level of Care Code ED Pediatric Assistant for Osiel Kunz
[2022-09-03] MEDS: lactated ringers 1,000 ML 999 ML IV (13:55)
[2022-09-03] MEDS: cefTRIAXone 1,000 MG in sodium chloride 0.9% (plus) 50 ML 100 MG IV (13:55)
[2022-09-03 16:32] LABS: Add Urine Microscopic? YES; Bilirubin Urine Neg (Negative); Blood Urine Neg (Negative); Glucose Urine UA Norm (Normal); Ketones Urine Negative (Negative); Leukocyte Esterase Urine 2+ (Negative); Nitrate Urine Negative (Negative); Protein Urine Neg (Negative); Specific Gravity, Urine 1.015 (1.005-1.030); Sulfosalicylic Acid Urine Negative (Negative); Urine Appearance Clear (CLEAR); Urine Color Yellow (Yellow); Urobilinogen Urine Neg (Negative); pH Urine 8 (5-7)
[2022-09-03 16:39] LABS: Bacteria Urine TRACE /hpf; Mucus Urine TRACE /hpf; RBC Urine 0-4 /hpf (0-2); Squamous Epithelial Cell Urine 0-4 /hpf (0-5); WBC Urine 25-40 /hpf (0-5)
--- NOTE | 2022-09-03 16:54 | CTR_ITS ---
PROCEDURE INFORMATION: Exam: CT Abdomen And Pelvis With Contrast Exam date and time: 09/03/2022 5:16 PM Age: 37 years old Clinical indication: Condition or disease; Intestinal condition and kidney or ureter condition; Hydronephrosis; Obstruction; Prior surgery; Surgery type: Hyster, c section; Additional info: R/O pyelo TECHNIQUE: Imaging protocol: Computed tomography of the abdomen and pelvis with contrast. Radiation optimization: All CT scans at this facility use at least one of these dose optimization techniques: automated exposure control; mA and/or kV adjustment per patient size (includes targeted exams where dose is matched to clinical indication); or iterative reconstruction. Contrast material: OMNI 350; Contrast volume: 100 ml; Contrast route: INTRAVENOUS (IV); REPORTING DATA: Count of CT and Cardiac NM exams in prior 12 months: This patient has received [address] and 0 known cardiac nuclear medicine studies in the 12 months prior to the current study. COMPARISON: CT abdomen pelvis w con* [id number] 08/30/2022 10:38 PM RADIATION DOSE METRICS: Total DLP (mGy-cm): 421.67 FINDINGS: Liver: Hepatic steatosis. Gallbladder and bile ducts: Normal. No calcified stones. No ductal dilation. Pancreas: Normal. No ductal dilation. Spleen: Normal. No splenomegaly. Adrenal glands: Normal. No mass. Kidneys and ureters: Normal. No hydronephrosis. Stomach and bowel: Unremarkable. No obstruction. No mucosal thickening. Appendix: No evidence of appendicitis. Intraperitoneal space: Small amount of nonspecific fluid in the pelvis. Vasculature: Unremarkable. No abdominal aortic aneurysm. Lymph nodes: Unremarkable. No enlarged lymph nodes. Urinary bladder: Urinary bladder wall thickening suggestive of a cystitis. Reproductive: Left ovary 16 mm peripherally enhancing cyst suggestive of a partially collapsed follicle. Bones/joints: Unremarkable. No acute fracture. Soft tissues: Unremarkable. Other findings: Small amount of nonspecific fluid in the pelvis. CT/CT abdomen pelvis w con* [id number] IMPRESSION: 1. Left ovary 16 mm peripherally enhancing cyst suggestive of a partially collapsed follicle. 2. Small amount of nonspecific fluid in the pelvis. 3. Urinary bladder wall thickening suggestive of a cystitis. 4. Hepatic steatosis.
--- NOTE | 2022-09-03 17:08 | PC.NURSE ---
ATTEMPTED TO AMBULATE PATIENT. SHE WAS UNABLE TO DO SO WITHOUT ASSIST, PT IS VERY DIZZY AND GAIT IS UNSTEADY. DR AVALOSIED.
[2022-09-03] MEDS: iohexol 350 mg/mL 500 mL Btl (per mL) IV (17:20)
--- NOTE | 2022-09-03 17:42 | P.HP_ITS ---
Providers/Chief Complaint Primary Care Provider: GELA Raines Chief Complaint: LOW BP/ WEAKNESS/ SYNCOPE History of Present Illness Quynh Beckman is a 37 year old female with past medical history of dyspareunia, endometriosis presented to the ER from work today because of 2-3 episodes of presyncope. Patient never lost consciousness. Episodes not associated with changing of position. Denies any aura but does complain of blurriness of vision prior to the episodes. Denies any similar episodes in the past. Denies any weakness denies any nausea, vomiting, dysuria, diarrhea. Does state that her oral intake has been poor recently within last 2 to 3 days. In the ER patient was found to be orthostatic positive hence was given IV fluids. Blood work showed a white count 7.4, hemoglobin of 13, D-dimer of 0.39, sodium 137, creatinine 0.7, AST/ALT of 10/11, beta-hCG negative, UA negative for nitrites 2+ leuk esterase positive with CT abdomen pelvis as below. Review of Systems General: Reports: 10 or more systems reviewed and unremarkable except in HPI and below Const: Denies: fever(s), chills, body aches, change in appetite, change in weight, malaise, night sweats, diaphoresis, change in sleep pattern, daytime sleepiness or snoring Eyes: Denies: change in vision, blurry vision, photophobia, eye discomfort or eye discharge ENMT: Denies: throat pain, enlarged tonsils, hoarseness, mouth pain, oral sores, dry mouth, tinnitus, nasal congestion or post nasal drip Card: Denies: chest pain, palpitations, irregular heart rhythm, edema, swelling of feet/ankles, lightheadedness, syncope, pre-syncope, dyspnea on exertion, orthopnea, leg pain with exertion or acrocyanosis Resp: Denies: dyspnea, productive cough, non-productive cough, wheezing, stridor, pain on inspiration, change in phlegm color, hemoptysis or chest congestion GI: Denies: abdominal pain, nausea, vomiting, hematemesis, coffee ground emesis, dysphagia, heartburn, diarrhea, constipation, bloating, GI cramping, change in bowel habits, pain on defecation, hematochezia or melena : Denies: flank pain, dysuria, urinary frequency, urinary urgency, urinary hesitancy, nocturia or hematuria Musc: Denies: neck pain, back pain, extremity pain, joint pain, joint swelling, joint redness, joint stiffness or limited range of motion Neuro: Denies: headache(s), numbness in extremities, weakness in extremities, sensory changes, lack of coordination, difficulty walking, frequent falls, dizziness, vertigo, confusion, Slurred speech present, difficulty communicating thoughts or seizure-like activity Psych: Denies: anxiety, depression, mood swings, panic attacks, hopelessness or irritability Endo: Denies: polyuria, polydipsia, tired all the time, cold intolerance, excessive sweating, flushing or heat intolerance [place]/Lymph: Denies: easy bruising or easy bleeding All/Imm: Denies: tongue swelling, facial swelling or acute wheezing Medications/Allergies Home Medications Medication Instructions Recorded Confirmed Last Taken Type acetaminophen 325 mg capsule 325 mg PO Q4H PRN fever or pain 11/26/21 09/03/22 Unknown Rx #60 caps ibuprofen 800 mg tablet 800 mg PO TID PRN pain #60 tabs 11/26/21 09/03/22 Unknown Rx citalopram 10 mg tablet 10 mg PO DAILY #30 tabs 04/06/22 09/03/22 09/03/22 Rx trazodone 50 mg tablet 50 mg PO DAILY PRN sleep #30 tabs 07/15/22 09/03/22 09/02/22 Rx buspirone 15 mg tablet 15 mg PO BID #60 tabs 08/04/22 09/03/22 09/02/22 Rx nitrofurantoin 100 mg PO Q12H 7 days #14 caps 09/02/22 09/03/22 09/02/22 Rx monohydrate/macrocrystals 100 mg capsule (Macrobid) ondansetron 4 mg disintegrating 4 mg PO Q8H PRN nausea and 09/02/22 09/03/22 Unknown Rx tablet vomiting #14 tabs Allergies Allergy/AdvReac Type Severity Reaction Status Date / Time No Known Allergies Allergy Verified 08/30/22 14:24 PFSH Acute PFSH: Medical History (Updated 09/03/22 @ 18:37 by Marito Gu MD) Aftercare following surgery of the genitourinary system Caries involving multiple surfaces of tooth Dyspareunia in female Endometriosis Migraine Pelvic pain Surgical History H/O laparoscopy 08/26/2021- diagnostic laparoscopy, performed by Dr. Jo at [facility] H/O: hysterectomy 11/25/2021: MORRO performed by Dr. Jo at [facility] History of section 2006, 2010, 2012, 2016 Family History Mother Hypertension Stroke Clotting disorder Denies family history of Colon cancer Ovarian cancer Diabetes Heart disease Hyperlipidemia Breast cancer Anesthesia complication Bleeding disorder Uterine cancer Thyroid condition Social History Smoking and tobacco status: current every day smoker Substance/Drug Use: never Adopted: No Caregiver/support person: No Highest education level completed: High School Graduate service: No Current occupational status: employed Female Reproductive History: Para: 4 Spontaneous abortions: Yes (2) Vitals/I&O/Wt Last Vital Signs Temp 98.3 F 09/03/22 11:47 Pulse 68 09/03/22 16:38 Resp 20 H 09/03/22 11:47 BP 108/54 09/03/22 16:38 Pulse Ox 99 09/03/22 11:47 O2 Del Method Room Air 09/03/22 11:47 09/03/22 09/03/22 09/03/22 06:59 14:59 22:59 Intake Total 1050 / 1050 Balance 1050 / 1050 Physical Exam Narrative: General: No acute distress, AO x3 HEENT: PERRLA, pupils bilaterally equal and reactive Chest: Normal vesicular breath sounds, no added sounds, equal good air entry bilaterally CVS: S1-S2 regular, no murmurs, no tachycardia, no gallops, no rubs Abdomen: Soft, nontender, no organomegaly, bowel sounds present Neuro: No focal deficits, no facial deformity, AO x3, power 5/5 in all limbs Data 09/03/22 11:55 09/03/22 11:55 Other Labs: Radiology Impressions Chest X-Ray 09/03/22 12:02 IMPRESSION: No acute findings. Abdomen/Pelvis CT 09/03/22 16:54 IMPRESSION: 1. Left ovary 16 mm peripherally enhancing cyst suggestive of a partially collapsed follicle. 2. Small amount of nonspecific fluid in the pelvis. 3. Urinary bladder wall thickening suggestive of a cystitis. 4. Hepatic steatosis. Laboratory Results WBC 7.4 10^3/uL (4.0-10.0) 09/03/22 11:55 RBC 4.21 10^6/uL (4.1-5.3) 09/03/22 11:55 Hgb 13.0 g/dL (11.5-15.3) 09/03/22 11:55 Hct 39.4 % (37.0-47.0) 09/03/22 11:55 MCV 93.6 fl (81-99) 09/03/22 11:55 MCH 30.9 pg (28.0-34.0) 09/03/22 11:55 MCHC 33.0 g/dL (30.0-36.0) 09/03/22 11:55 RDW 11.9 % (12.1-15.1) L 09/03/22 11:55 Plt Count 263 10^3/cmm (130-400) 09/03/22 11:55 MPV 10.3 fL (7.4-10.4) 09/03/22 11:55 Neut % (Auto) 70.2 % 09/03/22 11:55 Lymph % (Auto) 23.6 % 09/03/22 11:55 [place] % (Auto) 4.6 % 09/03/22 11:55 Eos % (Auto) 0.4 % 09/03/22 11:55 Baso % (Auto) 0.8 % 09/03/22 11:55 Neut # (Auto) 5.20 10^3/uL (1.8-7.7) 09/03/22 11:55 Lymph # (Auto) 1.8 10^3/uL (0.8-4.8) 09/03/22 11:55 [place] # (Auto) 0.3 10^3/uL (0.2-0.9) 09/03/22 11:55 Eos # (Auto) 0.0 10^3/uL (0.0-0.8) 09/03/22 11:55 Baso # (Auto) 0.1 10^3/uL (0.0-0.1) 09/03/22 11:55 Nucleated RBC % (auto) 0 % 09/03/22 11:55 Nucleated RBCs # 0.0 /100WBC 09/03/22 11:55 D-Dimer 0.39 ug/mIFEU (0-0.59) 09/03/22 11:55 Sodium 137 mmol/L (136-145) 09/03/22 11:55 Potassium 3.8 mmol/L (3.5-5.1) 09/03/22 11:55 Chloride 104 mmol/L (98-107) 09/03/22 11:55 Carbon Dioxide 24 mmol/L (22-29) 09/03/22 11:55 Anion Gap 12.8 (5-19) 09/03/22 11:55 BUN 5 mg/dL (6-20) L 09/03/22 11:55 Creatinine 0.7 mg/dL (0.5-0.9) 09/03/22 11:55 GFR Calculation 95.2 mL/min (90-130) 09/03/22 11:55 Glucose 89 mg/dL (65-115) 09/03/22 11:55 Calculated Osmolality 281 mOsm/kg (285-295) L 09/03/22 11:55 Calcium 8.1 mg/dL (8.5-10.5) L 09/03/22 11:55 Total Bilirubin 0.5 mg/dL (0.15-1.2) 09/03/22 11:55 AST 10 U/L (0-32) 09/03/22 11:55 ALT 11 U/L (0-33) 09/03/22 11:55 Alkaline Phosphatase 65 U/L (35-105) 09/03/22 11:55 Troponin T Baseline 6 ng/L (0-10) 09/03/22 11:55 Total Protein 6.2 g/dL (6.6-8.7) L 09/03/22 11:55 Albumin 3.5 g/dL (3.5-5.2) 09/03/22 11:55 Globulin 2.7 g/dL (1.3-4.6) 09/03/22 11:55 Lipase 19 U/L (13-60) 09/03/22 11:55 HCG, Qual Negative (Negative) 09/03/22 12:10 Urine Color Yellow (Yellow) 09/03/22 15:48 Urine Appearance Clear (CLEAR) 09/03/22 15:48 Urine pH 8 (5-7) H 09/03/22 15:48 Ur Specific [place] 1.015 (1.005-1.030) 09/03/22 15:48 Urine Protein Neg (Negative) 09/03/22 15:48 Urine Glucose (UA) Norm (Normal) 09/03/22 15:48 Urine Ketones Negative (Negative) 09/03/22 15:48 Urine Blood Neg (Negative) 09/03/22 15:48 Urine Nitrate Negative (Negative) 09/03/22 15:48 Urine Bilirubin Neg (Negative) 09/03/22 15:48 Prot Sulfosalicylic Acd Negative (Negative) 09/03/22 15:48 Urine Urobilinogen Neg mg/dL (Negative) 09/03/22 15:48 Ur Leukocyte Esterase 2+ (Negative) H 09/03/22 15:48 Urine RBC 0-4 /hpf (0-2) H 09/03/22 15:48 Urine WBC 25-40 /hpf (0-5) H 09/03/22 15:48 Ur Squamous Epith Cells 0-4 /hpf (0-5) H 09/03/22 15:48 Amorphous Sediment Not Reportable 09/03/22 15:48 Urine Bacteria Trace /hpf (NONE) 09/03/22 15:48 Urine Mucus Trace /hpf 09/03/22 15:48 Urine Sperm 1+ /hpf 09/03/22 12:10 A&P Assessment and plan (1) Syncope, near: Presyncope in setting of orthostatic hypotension most likely from cystitis. No hypoxia on admission. D-dimer negative. UPT negative. CT abdomen pelvis negative for any acute abnormality or bleed. No acute anemia on admission. LFT s and renal functions within normal limits. Baseline troponin negative. Fall precautions. Orthostatics every shift. Severe sepsis bolus. Normal saline at 75 cc/h. Check alcohol level, salicylate, acetaminophen level, urine drug screen. (2) Orthostatic hypotension: (3) Cystitis: Check blood culture, urine culture, lactic acid. For now empirically start on IV ceftriaxone. Will de-escalate as per culture results Sputum Giurgius negative for obstructive nephropathy. Plan Continue other chronic psych medications including BuSpar, citalopram. Full code Regular diet. Famotidine for PUD prophylaxis Low probability for VTE. Hemoglobin Attestations Medical Necessity Statement*: Admission for more than 2 midnights in setting of presyncope, positive orthostatic hypotension secondary to cystitis Diagnoses Syncope, near R55 Orthostatic hypotension I95.1 Cystitis N30.90
--- NOTE | 2022-09-03 17:57 | PC.NURSE ---
ROUNDING ON PT - SHE IS SITTING UP IN BED AND EATING DINNER THAT HER SPOUSE BROUGHT IN FOR HER. DENIES ANY PAIN OR NEEDS AT THIS TIME. PT IS AWARE THAT SHE IS ADMITTED OBSERVATION AND THAT I WILL LET HER KNOW HER ROOM NUMBER SOON WE KNOW.
[2022-09-03 19:08] LABS: Lactic Sepsis W/Reflex 1.6 mmol/L (0.5-2.2)
[2022-09-03 19:16] LABS: Acetaminophen < 5.0 ug/mL (10-30); Alcohol Level < 10 mg/dL (0-10); Salicylate < 0.3 mg/dL (3-10)
[2022-09-03 19:20] LABS: Amphetamines Screen Urine Negative (Negative); Barbiturates Screen Urine Negative (Negative); Benzodiazepines Screen Urine Negative (Negative); Cocaine Screen Urine Negative (Negative); Opiate Screen Urine Negative (Negative); PCP Screen Urine Negative (Negative); THC Screen Urine Negative (Negative)
--- NOTE | 2022-09-03 19:44 | PC.NURSE ---
REPORT GIVEN TO NEO ARCOS IN MED SURG.
[2022-09-03 20:29] LABS: Procalcitonin < 0.02 ng/mL (0-0.5)
[2022-09-03 21:26] LABS: Thyroid Stimulating Hormone 2.02 uIU/mL (0.27-4.20)
[2022-09-03] MEDS: famotidine 20 mg Tablet PO (22:12)
[2022-09-03] MEDS: dextrose 5%-sod chloride 0.9% 1,000 ML 75 ML IV (22:13)
[2022-09-04] VITALS (7 sets, daily range): BP systolic 98–115; BP diastolic 62–71; PULSE 61–72; RESP 15–18; TEMP 36.7–36.8; O2SAT 97–98; BMI 27.4
[2022-09-04 06:49] LABS: Basophils # 0.1 10^3/uL (0.0-0.1); Eosinophils # 0.1 10^3/uL (0.0-0.8); Eosinophils % 0.9 %; Hematocrit 36.9 % (37.0-47.0); Hemoglobin 12.4 g/dL (11.5-15.3); Lymphocytes # 1.6 10^3/uL (0.8-4.8); Lymphocytes % 27.1 %; Mean Corpuscular HGB Conc 33.6 g/dL (30.0-36.0); Mean Corpuscular Hemoglobin 30.6 pg (28.0-34.0); Mean Corpuscular Volume 91.1 fl (81-99); Mean Platelet Volume 10.2 fL (7.4-10.4); Monocytes # 0.4 10^3/uL (0.2-0.9); Monocytes % 6.7 %; Neutrophils # 3.69 10^3/uL (1.8-7.7); Neutrophils % 63.8 %; Nucleated Red Blood Cells % 0 %; Platelet Count 236 10^3/cmm (130-400); Red Blood Count 4.05 10^6/uL (4.1-5.3); Red Cell Distribution Width 11.9 % (12.1-15.1); White Blood Count 5.8 10^3/uL (4.0-10.0)
[2022-09-04 07:32] LABS: Alanine Aminotransferase 13 U/L (0-33); Albumin Level 3.3 g/dL (3.5-5.2); Alkaline Phosphatase 63 U/L (35-105); Anion Gap 7.9 (5-19); Aspartate Amino Transferase 14 U/L (0-32); Blood Urea Nitrogen 5 mg/dL (6-20); Calcium 8.3 mg/dL (8.5-10.5); Carbon Dioxide 22 mmol/L (22-29); Chloride 103 mmol/L (98-107); Chol HDL Ratio 5.23 mg/dL (0.0-4.40); Cholesterol 136 mg/dL (0-200); Globulin 2.5 g/dL (1.3-4.6); Glomerular Filtration Rate 113.8 mL/min (90-130); Glucose 105 mg/dL (65-115); HDL Cholesterol 26 mg/dL (60-100); LDL Cholesterol Calculated 98 mg/dL (50-129); LDL HDL Ratio 3.77 RATIO (0.00-3.22); Magnesium 1.8 mg/dL (1.7-2.3); Osmolality Calculated 266 mOsm/kg (285-295); Potassium 3.9 mmol/L (3.5-5.1); Sodium 129 mmol/L (136-145); Total Bilirubin 0.4 mg/dL (0.15-1.2); Total Protein 5.8 g/dL (6.6-8.7); Triglycerides 62 mg/dL (0-150)
[2022-09-04 07:44] LABS: Estmated Average Glucose 91; Hemoglobin A1C 4.8 % (4.0-6.0)
[2022-09-04] MEDS: BuSPIRONE 10 mg Tablet 15 MG PO (08:38)
[2022-09-04] MEDS: citalopram 20 mg Tablet 10 MG PO (08:39)
[2022-09-04] MEDS: famotidine 20 mg Tablet PO (08:39)
--- NOTE | 2022-09-04 11:55 | PM.DCS ---
Discharge Providers Date of Admission: 09/03/22 17:38 Date of Discharge: September 04, 2022 Attending Provider at Admission: Marito Gu MD Attending Provider at Discharge: Marito Gu MD Primary Care Provider: GELA Raines Diagnoses at Discharge Discharge Diagnosis (1) Syncope, near: Status: Acute (2) Orthostatic hypotension: Status: Acute (3) Cystitis: Status: Acute Reason for Visit Reason for Visit: LOW BP/ WEAKNESS/ SYNCOPE Hospital Course Hospital Course Quynh Beckman is a 37 year old female with past medical history of dyspareunia, endometriosis presented to the ER from work today because of 2-3 episodes of presyncope.? Patient never lost consciousness.? Episodes not associated with changing of position.? Denies any aura but does complain of blurriness of vision prior to the episodes.? Denies any similar episodes in the past.? Denies any weakness denies any nausea, vomiting, dysuria, diarrhea.? Does state that her oral intake has been poor recently within last 2 to 3 days. In the ER patient was found to be orthostatic positive hence was given IV fluids. Blood work showed a white count 7.4, hemoglobin of 13, D-dimer of 0.39, sodium 137, creatinine 0.7, AST/ALT of 10/11, beta-hCG negative, UA negative for nitrites 2+ leuk esterase positive with CT abdomen pelvis as below. Patient was admitted to the hospital for further evaluation. On admission she was found to be dehydrated. On admission she was found to have a negative D-dimer, negative UPT, CT abdomen pelvis negative for acute abnormality without any anemia and negative urine drug screen. Her baseline troponins were negative. She was found to be slightly orthostatic which resolved with IV hydration. She has been discharged in hemodynamically stable condition on oral Levaquin for 5 days with advised to maintain hydration with up to 3 L of fluids daily. Physical Exam Narrative: General: No acute distress, AO x3 HEENT: PERRLA, pupils bilaterally equal and reactive Chest: Normal vesicular breath sounds, no added sounds, equal good air entry bilaterally CVS: S1-S2 regular, no murmurs, no tachycardia, no gallops, no rubs Abdomen: Soft, nontender, no organomegaly, bowel sounds present Neuro: No focal deficits, no facial deformity, AO x3, power 5/5 in all limbs Discharge Data Studies Completed and Pending Completed Studies During Hospitalization Category Date Time Status CT abdomen pelvis w con* [id number] Stat Cat Scan 09/03/22 16:54 Completed XR chest 1V portable [id number] Stat Exams 09/03/22 12:02 Completed Pending at discharge Category Date Time Status Blood Culture Stat Lab 09/03/22 18:03 Results Radiology Impressions Chest X-Ray 09/03/22 12:02 IMPRESSION: No acute findings. Abdomen/Pelvis CT 09/03/22 16:54 IMPRESSION: 1. Left ovary 16 mm peripherally enhancing cyst suggestive of a partially collapsed follicle. 2. Small amount of nonspecific fluid in the pelvis. 3. Urinary bladder wall thickening suggestive of a cystitis. 4. Hepatic steatosis. Laboratory Results WBC 5.8 10^3/uL (4.0-10.0) 09/04/22 06:29 RBC 4.05 10^6/uL (4.1-5.3) L 09/04/22 06:29 Hgb 12.4 g/dL (11.5-15.3) 09/04/22 06:29 Hct 36.9 % (37.0-47.0) L 09/04/22 06:29 MCV 91.1 fl (81-99) 09/04/22 06:29 MCH 30.6 pg (28.0-34.0) 09/04/22 06:29 MCHC 33.6 g/dL (30.0-36.0) 09/04/22 06:29 RDW 11.9 % (12.1-15.1) L 09/04/22 06:29 Plt Count 236 10^3/cmm (130-400) 09/04/22 06:29 MPV 10.2 fL (7.4-10.4) 09/04/22 06:29 Neut % (Auto) 63.8 % 09/04/22 06:29 Lymph % (Auto) 27.1 % 09/04/22 06:29 [place] % (Auto) 6.7 % 09/04/22 06:29 Eos % (Auto) 0.9 % 09/04/22 06:29 Baso % (Auto) 1.0 % 09/04/22 06:29 Neut # (Auto) 3.69 10^3/uL (1.8-7.7) 09/04/22 06:29 Lymph # (Auto) 1.6 10^3/uL (0.8-4.8) 09/04/22 06:29 [place] # (Auto) 0.4 10^3/uL (0.2-0.9) 09/04/22 06:29 Eos # (Auto) 0.1 10^3/uL (0.0-0.8) 09/04/22 06:29 Baso # (Auto) 0.1 10^3/uL (0.0-0.1) 09/04/22 06:29 Nucleated RBC % (auto) 0 % 09/04/22 06: Nucleated RBCs # 0.0 /100WBC 09/04/22 06:29 D-Dimer 0.39 ug/mIFEU (0-0.59) 09/03/22 11:55 Sodium 129 mmol/L (136-145) L 09/04/22 06:29 Potassium 3.9 mmol/L (3.5-5.1) 09/04/22 06:29 Chloride 103 mmol/L (98-107) 09/04/22 06:29 Carbon Dioxide 22 mmol/L (22-29) 09/04/22 06:29 Anion Gap 7.9 (5-19) 09/04/22 06:29 BUN 5 mg/dL (6-20) L 09/04/22 06:29 Creatinine 0.6 mg/dL (0.5-0.9) 09/04/22 06:29 GFR Calculation 113.8 mL/min (90-130) 09/04/22 06:29 Glucose 105 mg/dL (65-115) 09/04/22 06:29 Estimat Average Glucose 91 09/04/22 06:29 Hemoglobin A1c 4.8 % (4.0-6.0) 09/04/22 06:29 Calculated Osmolality 266 mOsm/kg (285-295) L 09/04/22 06:29 Lactic Acid 1.6 mmol/L (0.5-2.2) 09/03/22 18:33 Calcium 8.3 mg/dL (8.5-10.5) L 09/04/22 06:29 Phosphorus 3.0 mg/dL (2.5-4.5) 09/04/22 06:29 Magnesium 1.8 mg/dL (1.7-2.3) 09/04/22 06:29 Total Bilirubin 0.4 mg/dL (0.15-1.2) 09/04/22 06:29 AST 14 U/L (0-32) 09/04/22 06:29 ALT 13 U/L (0-33) 09/04/22 06:29 Alkaline Phosphatase 63 U/L (35-105) 09/04/22 06:29 Troponin T Baseline 6 ng/L (0-10) 09/03/22 11:55 Total Protein 5.8 g/dL (6.6-8.7) L 09/04/22 06:29 Albumin 3.3 g/dL (3.5-5.2) L 09/04/22 06:29 Globulin 2.5 g/dL (1.3-4.6) 09/04/22 06:29 Triglycerides 62 mg/dL (0-150) 09/04/22 06:29 Cholesterol 136 mg/dL (0-200) 09/04/22 06:29 LDL Cholesterol, Calc 98 mg/dL (50-129) 09/04/22 06:29 HDL Cholesterol 26 mg/dL (60-100) L 09/04/22 06:29 LDL/HDL Ratio 3.77 RATIO (0.00-3.22) H 09/04/22 06:29 Cholesterol/HDL Ratio 5.23 mg/dL (0.0-4.40) H 09/04/22 06:29 Lipase 19 U/L (13-60) 09/03/22 11:55 Procalcitonin < 0.02 ng/mL (0-0.5) 09/03/22 18:33 TSH 2.02 uIU/mL (0.27-4.20) 09/03/22 18:33 HCG, Qual Negative (Negative) 09/03/22 12:10 Urine Color Yellow (Yellow) 09/03/22 15:48 Urine Appearance Clear (CLEAR) 09/03/22 15:48 Urine pH 8 (5-7) H 09/03/22 15:48 Ur Specific [place] 1.015 (1.005-1.030) 09/03/22 15:48 Urine Protein Neg (Negative) 09/03/22 15:48 Urine Glucose (UA) Norm (Normal) 09/03/22 15:48 Urine Ketones Negative (Negative) 09/03/22 15:48 Urine Blood Neg (Negative) 09/03/22 15:48 Urine Nitrate Negative (Negative) 09/03/22 15:48 Urine Bilirubin Neg (Negative) 09/03/22 15:48 Prot Sulfosalicylic Acd Negative (Negative) 09/03/22 15:48 Urine Urobilinogen Neg mg/dL (Negative) 09/03/22 15:48 Ur Leukocyte Esterase 2+ (Negative) H 09/03/22 15:48 Urine RBC 0-4 /hpf (0-2) H 09/03/22 15:48 Urine WBC 25-40 /hpf (0-5) H 09/03/22 15:48 Ur Squamous Epith Cells 0-4 /hpf (0-5) H 09/03/22 15:48 Amorphous Sediment Not Reportable 09/03/22 15:48 Urine Bacteria Trace /hpf (NONE) 09/03/22 15:48 Urine Mucus Trace /hpf 09/03/22 15:48 Urine Sperm 1+ /hpf 09/03/22 12:10 Salicylates < 0.3 mg/dL (3-10) L 09/03/22 11:55 Urine Opiates Screen Negative ng/mL (Negative) 09/03/22 15:48 Acetaminophen < 5.0 ug/mL (10-30) L 09/03/22 11:55 Ur Barbiturates Screen Negative ng/mL (Negative) 09/03/22 15:48 Ur Phencyclidine Scrn Negative ng/mL (Negative) 09/03/22 15:48 Ur Amphetamines Screen Negative ng/mL (Negative) 09/03/22 15:48 U Benzodiazepines Scrn Negative ng/mL (Negative) 09/03/22 15:48 Urine Cocaine Screen Negative ng/mL (Negative) 09/03/22 15:48 U Marijuana (THC) Screen Negative ng/mL (Negative) 09/03/22 15:48 Ethyl Alcohol < 10 mg/dL (0-10) 09/03/22 11:55 Vitals Last Vital Signs Temp 98.0 F 09/04/22 08:00 Pulse 61 09/04/22 08:00 Resp 15 09/04/22 08:00 BP 110/71 09/04/22 08:00 Pulse Ox 98 09/04/22 08:00 O2 Del Method Room Air 09/04/22 04:13 Discharge Plan Discharge Patient Disposition: Home Condition: Stable Prescriptions: New famotidine 20 mg Tablet 20 mg PO BID Qty: 60 0RF levofloxacin 500 mg tablet 500 mg PO Q24H 5 Days Qty: 5 0RF Continued citalopram 10 mg tablet 10 mg PO DAILY Qty: 30 5RF trazodone 50 mg tablet 50 mg PO DAILY PRN (Reason: sleep) Qty: 30 2RF Rx Instructions: start 1/2 tab buspirone 15 mg tablet 15 mg PO BID Qty: 60 5RF Rx Instructions: may increase to 2 tabs to equal 30 mg if needed ondansetron 4 mg tablet,disintegrating 4 mg PO Q8H PRN (Reason: nausea and vomiting) Qty: 14 0RF ibuprofen 800 mg tablet 800 mg PO TID PRN (Reason: pain) Qty: 60 0RF acetaminophen 325 mg capsule 325 mg PO Q4H PRN (Reason: fever or pain) Qty: 60 0RF Discontinued nitrofurantoin monohyd/m-cryst [Macrobid] 100 mg capsule 100 mg PO Q12H 7 Days Qty: 14 0RF Rx Instructions: must administer with a meal/food Discharge Orders: Discharge Order (Routine); Ordered 09/04/22 Ordered By: Marito Gu Referrals: Karen Dean FNP-C [Primary Care Provider] - 7-10 days Discharge Diet: Regular Discharge Activity: Resume usual activity and Increase activity as tolerated Patient Instructions: Opioid Safety Activity Restrictions/Additional Instructions: Take Levaquin 500 mg daily for next 5 days. Make sure you can do up to 2 to 3 L of fluid daily. Change positions from sitting up to standing or from laying down to sitting up gradually Discharge Attestations Time Spent in Discharge Care*: greater than 30 min Specific Discharge Activities: educating patient, educating and/or supporting family/caregiver, discussing with pcp/other providers, discussing with transplant case manager/social workers/dc planners, documenting/other paperwork and evaluating patient/reviewing data Status at Discharge: Cognitive status at discharge: cognitively intact, Behavioral status at discharge: cooperative, Functional status at discharge: independent ambulation, Overall status at discharge: patient is back to baseline Quality Metrics Clinical Quality Measures [ No reported AMI, CVA or VTE this stay] Coding Level of Care Code 40650 Total time (in minutes) for Discharge: 50 Diagnoses Syncope, near R55 Orthostatic hypotension I95.1 Cystitis N30.90
[2022-09-04] MEDS: cefTRIAXone 1,000 MG in sodium chloride 0.9% (plus) 50 ML 100 MG IV (12:26)
== END 2022-09-04 13:09 | disposition home or self-care (01) ==
LOC: ER 17:40 → MEDSURG 19:47
PROVIDERS: Admitting Provider Student in an Organized Health Care Education/Training Program; Emergency Provider Emergency Medicine; PCP Nurse Practitioner Family; Visit Provider Student in an Organized Health Care Education/Training Program
DX: I95.1 Orthostatic hypotension (principal); N30.90 Cystitis, unspecified without hematuria
CPT/HCPCS: 36415; 71045; 74177; 80053; 80061; 80306; 80307; 81001; 81025; 83036; 83605; 83690; 83735; 84100; 84145; 84443; 84484; 85025; 85378; 87040; 93005; 96365; 96367; 99285; G0378; J0696; J7042; J7120; Q9967

== ENCOUNTER → 2022-09-09 09:51 | Outpatient (BNVA) | payer BC, MEDICAID, SELFPAY | PROVIDERS: PCP Nurse Practitioner Family; Visit Provider Nurse Practitioner Family | DX: N30.90 Cystitis, unspecified without hematuria (principal) | CPT/HCPCS: 81000 ==

== ENCOUNTER 2022-09-10 08:19 | Outpatient (CLI) | payer BC, MEDICAID, SELFPAY ==
--- NOTE | 2022-09-10 08:45 | MR_ITS ---
WS: [id number] MRI BRAIN WITHOUT CONTRAST HISTORY: R55 - Syncope and collapse COMPARISON: None available. TECHNIQUE: Diffusion imaging, multiplanar T1, T2 and FLAIR imaging obtained. No evidence for acute infarct or hemorrhage. Frankel-white matter differentiation is normal. No remote or acute infarcts are volume loss. Ventricles and extra-axial spaces are normal. No inferior displacement of cerebellar tonsils. The sella turcica and pituitary gland are unremarkabl e. Dural venous sinuses and [place] demonstrate no abnormality on this unenhanced studies. Paranasal sinuses: Clear. Mastoid air cells: Normal. Calvarium and scalp: Intact. MR/MR head wo con* [id number] IMPRESSION: 1. Unremarkable noncontrast MRI brain. 2. No acute infarct and no hemorrhage. No signal abnormality.
== END 2022-09-10 08:20 | disposition home or self-care (01) ==
LOC: RAD 08:21
PROVIDERS: PCP Nurse Practitioner Family; Visit Provider Nurse Practitioner Family
DX: G43.909 Migraine, unspecified, not intractable, without status migrainosus (principal); R55 Syncope and collapse
CPT/HCPCS: 70551

== ENCOUNTER 2022-10-03 14:38 | Emergency (ER) | payer BC, MEDICAID, SELFPAY ==
[2022-10-03] VITALS (7 sets, daily range): BP systolic 103–109; BP diastolic 62–66; PULSE 72–82; RESP 17; TEMP 37.1; O2SAT 95–98; BMI 27.4
--- NOTE | 2022-10-03 14:54 | ECG_ITS ---
[facility] Test Date: 2022-10-03 Pat Name: Quynh Beckman Department: Room: Gender: Female Tobacco Blender: : 1985 Requested By: Dhiraj Brand Order Number: [id number] Soco MD: Talon Grimes M.D. Measurements Intervals [place] Rate: 75 P: 58 LA: 162 QRS: 56 QRSD: 78 T: 50 QT: 377 QTc: 423 Interpretive Statements SINUS RHYTHM Compared to ECG 09/03/2022 12:09:25 No significant changes Electronically Signed On 10-03-2022 19:25:13 CDT by Talon Grimes M.D. [email or web address]
--- NOTE | 2022-10-03 14:54 | PC.NURSE ---
Pt hooked up to continuous bedside cardiac monitoring.
--- NOTE | 2022-10-03 14:55 | XRR_ITS ---
PROCEDURE INFORMATION: Exam: XR Chest Exam date and time: 10/03/2022 3:15 PM Age: 37 years old Clinical indication: Other: Syncope TECHNIQUE: Imaging protocol: Radiologic exam of the chest. Views: 1 view. COMPARISON: CR XR chest 1V portable [id number] 09/03/2022 12:44 PM FINDINGS: Lungs: No consolidation. Pleural spaces: Unremarkable. No pleural effusion. No pneumothorax. Heart/Mediastinum: No cardiomegaly. Bones/joints: No acute findings. XR/XR chest 1V portable [id number] IMPRESSION: No acute findings.
--- NOTE | 2022-10-03 14:55 | CTR_ITS ---
PROCEDURE INFORMATION: Exam: CT Head Without Contrast Exam date and time: 10/03/2022 3:02 PM Age: 37 years old Clinical indication: Syncope and collapse TECHNIQUE: Imaging protocol: Computed tomography of the head without contrast. Radiation optimization: All CT scans at this facility use at least one of these dose optimization techniques: automated exposure control; mA and/or kV adjustment per patient size (includes targeted exams where dose is matched to clinical indication); or iterative reconstruction. REPORTING DATA: Count of CT and Cardiac NM exams in prior 12 months: This patient has received 2 known CTs and 0 known cardiac nuclear medicine studies in the 12 months prior to the current study. COMPARISON: MR head wo con* [id number] 09/10/2022 9:15 AM RADIATION DOSE METRICS: Total DLP (mGy-cm): 1006.4 FINDINGS: Brain: Normal. No hemorrhage. Unremarkable white matter. No mass effect. Cerebral ventricles: No ventriculomegaly. Paranasal sinuses: Mild mucosal thickening left sphenoid sinus new since most recent exam. No air-fluid level. Mastoid air cells: Visualized mastoid air cells are well aerated. Bones/joints: Unremarkable. No acute fracture. Soft tissues: Unremarkable. CT/CT head wo con* [id number] IMPRESSION: 1. No acute intracranial findings. 2. Sinus findings as above.
--- NOTE | 2022-10-03 15:26 | ED_ITS ---
HPI - Syncope General: Chief Complaint: Syncope Stated Complaint: SYNCOPE Time Seen by Provider: 10/03/22 14:54 History of Present Illness: Patient presents to the ER today with complaints of feeling faint at work and almost passing out. Patient does have a history of this happening 2 or 3 times in the past and approximately 1 month ago was admitted for this for further work-up. Patient does have an echo scheduled on . Patient says her sister done the same thing and she had to have a tilt table test performed before they figured out what the cause was. complaint: felt faint and almost passed out Onset (ago): month(s) (About 1 month ago and happened again today) Prodromal symptoms: lightheaded and vertigo Witnessed: Yes - by Bystander Context: at rest Injuries sustained associated with event: none Associated symptoms: Reports lightheadedness and vertigo; Deny abdominal pain, chest pain, fever(s) or nausea History: previous syncopal episode Treatments prior to arrival: none Review of Systems General: Reports: 10 or more systems reviewed and unremarkable except in HPI and below Const: Denies: fever(s) or chills Eyes: Denies: change in vision or photophobia ENMT: Denies: throat pain or odynophagia Card: Reports: lightheadedness; Denies: chest pain, palpitations or irregular heart rhythm Resp: Denies: dyspnea, productive cough or non-productive cough GI: Denies: abdominal pain, nausea, vomiting or diarrhea : Denies: flank pain, difficulty voiding or dysuria Musc: Denies: neck pain or back pain Neuro: Reports: vertigo PFS ED PFSH: Medical History Aftercare following surgery of the genitourinary system Caries involving multiple surfaces of tooth Dyspareunia in female Endometriosis Migraine Pelvic pain Surgical History H/O laparoscopy 08/26/2021- diagnostic laparoscopy, performed by Dr. Jo at [facility] H/O: hysterectomy 11/25/2021: MORRO performed by Dr. Jo at [facility] History of section 2006, 2010, 2012, 2016 Family History Mother Hypertension Stroke Clotting disorder Denies family history of Colon cancer Ovarian cancer Diabetes Heart disease Hyperlipidemia Breast cancer Anesthesia complication Bleeding disorder Uterine cancer Thyroid condition Social History Smoking and tobacco status: current every day smoker Substance/Drug Use: never Adopted: No Caregiver/support person: No Highest education level completed: High School Graduate service: No Current occupational status: employed Female Reproductive History: Para: 4 Spontaneous abortions: Yes (2) Physical Exam Const: COMMON NORMALS: no acute distress, average body habitus, patient oriented x3, no limitations, healthy appearing, alert and well nourished HENMT: COMMON NORMALS: normocephalic, atraumatic, hearing grossly normal bilaterally, external ears normal, Normal external nose present and moist oral mucous membranes HEAD & SCALP: normocephalic and atraumatic NOSE: Normal external nose present EXTERNAL EAR: Yes external ears normal Eye: COMMON NORMALS: Equal, round and reactive pupils present, EOMs intact bilaterally, conjunctivae normal and no scleral icterus CONJUNCTIVA: Yes conjunctivae normal PUPIL: Yes Equal, round and reactive pupils present Neck/C-Spine: COMMON NORMALS: full ROM, no lymphadenopathy, supple, no meningeal signs, no JVD and Thyroid normal THYROID: Thyroid normal Lymph: LYMPHATIC: no lymphadenopathy noted Chest: COMMONS NORMALS: normal inspection of the chest and normal palpation of entire chest wall Resp: COMMON NORMALS: normal respiratory effort, No retractions, No use of accessory muscles and clear to auscultation bilaterally AUSCULTATION: clear to auscultation bilaterally Cardio: COMMON NORMALS: no JVD, regular rate, regular rhythm, S1 normal heart sound present, S2 normal heart sound present, No gallops present (Cardio), No clicks present (Cardio), No murmurs present (Cardio) and No rub (Cardio) RATE: regular rate RHYTHM: regular rhythm HEART SOUNDS: S1 normal heart sound present and S2 normal heart sound present GI: COMMON NORMALS: Normal to inspection, nondistended, normoactive bowel sounds present, Soft to palpation, non-tender, No hepatosplenomegaly present and no masses PALPATION: Yes Soft to palpation and Yes No hepatosplenomegaly present : COMMON NORMALS: Yes no CVA tenderness BLADDER/KIDNEY EXAM: Yes no CVA tenderness Back/Pelvis: COMMON NORMALS: no CVA tenderness Extremity: COMMON NORMALS: normal to inspection Neuro: COMMON NORMALS: patient oriented x3 SENSORIUM/ORIENTATION: Yes alert MENINGEAL SIGNS: Yes no meningeal signs Course Vital Signs: Vital signs: Vital Signs Temperature 98.7 F 10/03/22 14:40 Pulse Rate 80 10/03/22 17:05 Respiratory Rate 17 10/03/22 16:30 Blood Pressure 109/66 10/03/22 17:05 Pulse Oximetry 97 10/03/22 17:05 Oxygen Delivery Me thod Room Air 10/03/22 15:25 MDM - Syncope Medical Decision Making Patient presents to the ER with complaints of syncope or near syncope. Patient has had this several times approximately 1 month ago and has had been placed inpatient and a work-up started. Patient has not seen a universal branch consultant but does have an echo scheduled this week. Patient had routine lab work EKG chest x-ray and CT scans performed which were all essentially benign. Patient said she has a sister that had the same thing that needed a tilt table test performed before she got some diagnosis. Patient will be discharged home and case management will be consulted for cardiology referral. For possible tilt table test Differential Diagnosis Likely syncope due to orthostatic hypotension; Unlikely vasovagal syncope, co mplete atrioventricular block, subarachnoid hemorrhage, pulmonary embolism or dehydration Medical Records I reviewed the patient's medical records. . Lab Data I reviewed the patient's lab results. 10/03/22 15:32 10/03/22 15:32 Radiology Impressions Chest X-Ray 10/03/22 14:55 IMPRESSION: No acute findings. Head CT 10/03/22 14:55 IMPRESSION: 1. No acute intracranial findings. 2. Sinus findings as above. Laboratory Results WBC 7.6 10^3/uL (4.0-10.0) 10/03/22 15:32 RBC 4.05 10^6/uL (4.1-5.3) L 10/03/22 15:32 Hgb 12.3 g/dL (11.5-15.3) 10/03/22 15:32 Hct 37.4 % (37.0-47.0) 10/03/22 15:32 MCV 92.3 fl (81-99) 10/03/22 15:32 MCH 30.4 pg (28.0-34.0) 10/03/22 15:32 MCHC 32.9 g/dL (30.0-36.0) 10/03/22 15:32 RDW 11.7 % (12.1-15.1) L 10/03/22 15:32 Plt Count 218 10^3/cmm (130-400) 10/03/22 15:32 MPV 10.6 fL (7.4-10.4) H 10/03/22 15:32 Neut % (Auto) 71.9 % 10/03/22 15:32 Lymph % (Auto) 21.8 % 10/03/22 15:32 [place] % (Auto) 4.5 % 10/03/22 15:32 Eos % (Auto) 0.9 % 10/03/22 15:32 Baso % (Auto) 0.8 % 10/03/22 15:32 Neut # (Auto) 5.48 10^3/uL (1.8-7.7) 10/03/22 15:32 Lymph # (Auto) 1.7 10^3/uL (0.8-4.8) 10/03/22 15:32 [place] # (Auto) 0.3 10^3/uL (0.2-0.9) 10/03/22 15:32 Eos # (Auto) 0.1 10^3/uL (0.0-0.8) 10/03/22 15:32 Baso # (Auto) 0.1 10^3/uL (0.0-0.1) 10/03/22 15:32 Nucleated RBC % (auto) 0 % 10/03/22 15:32 Nucleated RBCs # 0.0 /100WBC 10/03/22 15:32 Sodium 140 mmol/L (136-145) 10/03/22 15:32 Potassium 3.5 mmol/L (3.5-5.1) 10/03/22 15:32 Chloride 108 mmol/L (98-107) H 10/03/22 15:32 Carbon Dioxide 24 mmol/L (22-29) 10/03/22 15:32 Anion Gap 11.5 (5-19) 10/03/22 15:32 BUN 10 mg/dL (6-20) 10/03/22 15:32 Creatinine 0.7 mg/dL (0.5-0.9) 10/03/22 15:32 GFR Calculation 95.2 mL/min (90-130) 10/03/22 15:32 Glucose 98 mg/dL (65-115) 10/03/22 15:32 Calculated Osmolality 289 mOsm/kg (285-295) 10/03/22 15:32 Calcium 8.2 mg/dL (8.5-10.5) L 10/03/22 15:32 Total Bilirubin 0.5 mg/dL (0.15-1.2) 10/03/22 15:32 AST 19 U/L (0-32) 10/03/22 15:32 ALT 17 U/L (0-33) 10/03/22 15:32 Alkaline Phosphatase 55 U/L (35-105) 10/03/22 15:32 Total Protein 6.2 g/dL (6.6-8.7) L 10/03/22 15:32 Albumin 4.0 g/dL (3.5-5.2) 10/03/22 15:32 Globulin 2.2 g/dL (1.3-4.6) 10/03/22 15:32 Prolactin 12.94 ng/mL (4.8-23.3) 10/03/22 15:32 Urine Color Yellow (Yellow) 10/03/22 15:40 Urine Appearance Sl hazy (CLEAR) A 10/03/22 15:40 Urine pH 5 (5-7) 10/03/22 15:40 Ur Specific [place] 1.010 (1.005-1.030) 10/03/22 15:40 Urine Protein Neg (Negative) 10/03/22 15:40 Urine Glucose (UA) Norm (Normal) 10/03/22 15:40 Urine Ketones Negative (Negative) 10/03/22 15:40 Urine Blood Neg (Negative) 10/03/22 15:40 Urine Nitrate Negative (Negative) 10/03/22 15:40 Urine Bilirubin Neg (Negative) 10/03/22 15:40 Urine Urobilinogen Norm mg/dL (Negative) 10/03/22 15:40 Ur Leukocyte Esterase Negative (Negative) 10/03/22 15:40 Urine RBC 0-4 /hpf (0-2) H 10/03/22 15:40 Urine WBC 0-4 /hpf (0-5) H 10/03/22 15:40 Ur Squamous Epith Cells 15-25 /hpf (0-5) H 10/03/22 15:40 Amorphous Sediment 2+ /hpf 10/03/22 15:40 Urine Bacteria Trace /hpf (NONE) 10/03/22 15:40 EKG Data EKG 1: I personally reviewed and interpreted this EKG as follows: EKG interpretation date: 10/03/22 EKG interpretation time: 15:31 Prior EKG tracings: not available for review Interpretation: EKG showed normal sinus rhythm, ventricular rate 75 bpm, [place] interval 162, QRS 78, QTc 406, no ST-T wave changes Discharge Plan Discharge Patient Disposition: Home Clinical Impression: Syncope, near Condition: Stable Prescriptions: No Action buspirone 15 mg tablet 15 mg PO BID Qty: 60 5RF Rx Instructions: may increase to 2 tabs to equal 30 mg if needed trazodone 50 mg tablet 50 mg PO DAILY PRN (Reason: sleep) Qty: 30 5RF Rx Instructions: start 1/2 tab citalopram 10 mg tablet 10 mg PO DAILY Qty: 30 5RF ondansetron 4 mg tablet,disintegrating 4 mg PO Q8H PRN (Reason: nausea and vomiting) Qty: 14 0RF ibuprofen 800 mg tablet 800 mg PO TID PRN (Reason: pain) Qty: 60 0RF acetaminophen 325 mg capsule 325 mg PO Q4H PRN (Reason: fever or pain) Qty: 60 0RF Discharge Orders: Discharge ED (Routine); Ordered 10/03/22 Ordered By: Dhiraj Brand Referrals: Karen Dean FNP-C [Primary Care Provider] - 1 week Patient Instructions: Near Syncope (ED) Stand Alone Forms: Work/School Release Coding Level of Care Code ED Screening Unit Registered Nurse for Marig Ze
[2022-10-03 15:56] LABS: Basophils # 0.1 10^3/uL (0.0-0.1); Basophils % 0.8 %; Eosinophils # 0.1 10^3/uL (0.0-0.8); Eosinophils % 0.9 %; Hematocrit 37.4 % (37.0-47.0); Hemoglobin 12.3 g/dL (11.5-15.3); Lymphocytes # 1.7 10^3/uL (0.8-4.8); Lymphocytes % 21.8 %; Mean Corpuscular HGB Conc 32.9 g/dL (30.0-36.0); Mean Corpuscular Hemoglobin 30.4 pg (28.0-34.0); Mean Corpuscular Volume 92.3 fl (81-99); Mean Platelet Volume 10.6 fL (7.4-10.4); Monocytes # 0.3 10^3/uL (0.2-0.9); Monocytes % 4.5 %; Neutrophils # 5.48 10^3/uL (1.8-7.7); Neutrophils % 71.9 %; Nucleated Red Blood Cells % 0 %; Platelet Count 218 10^3/cmm (130-400); Red Blood Count 4.05 10^6/uL (4.1-5.3); Red Cell Distribution Width 11.7 % (12.1-15.1); White Blood Count 7.6 10^3/uL (4.0-10.0)
[2022-10-03 16:12] LABS: Add Urine Culture? No; Add Urine Microscopic? YES; Amorphous Sediment Urine 2+ /hpf; Bacteria Urine TRACE /hpf; Bilirubin Urine Neg (Negative); Blood Urine Neg (Negative); Glucose Urine UA Norm (Normal); Ketones Urine Negative (Negative); Leukocyte Esterase Urine Negative (Negative); Nitrate Urine Negative (Negative); Protein Urine Neg (Negative); RBC Urine 0-4 /hpf (0-2); Squamous Epithelial Cell Urine 15-25 /hpf (0-5); Urine Appearance SL Hazy (CLEAR); Urine Color Yellow (Yellow); Urobilinogen Urine Norm (Negative); WBC Urine 0-4 /hpf (0-5); pH Urine 5 (5-7)
[2022-10-03 16:19] LABS: Alanine Aminotransferase 17 U/L (0-33); Alkaline Phosphatase 55 U/L (35-105); Anion Gap 11.5 (5-19); Aspartate Amino Transferase 19 U/L (0-32); Blood Urea Nitrogen 10 mg/dL (6-20); Calcium 8.2 mg/dL (8.5-10.5); Carbon Dioxide 24 mmol/L (22-29); Chloride 108 mmol/L (98-107); Creatinine Clr Calc Pharmacy 101.4255; Globulin 2.2 g/dL (1.3-4.6); Glomerular Filtration Rate 95.2 mL/min (90-130); Glucose 98 mg/dL (65-115); Osmolality Calculated 289 mOsm/kg (285-295); Potassium 3.5 mmol/L (3.5-5.1); Prolactin 12.94 ng/mL (4.8-23.3); Sodium 140 mmol/L (136-145); Total Bilirubin 0.5 mg/dL (0.15-1.2); Total Protein 6.2 g/dL (6.6-8.7)
--- NOTE | 2022-10-04 10:19 | PC.SOCIAL ---
Addendum entered by Emma Kumar 10/19/22 10:20: retail training manager received the following message from heart care regarding follow up appointment: Spoke with patient and she stated [place] just [place] of [place] and does not want to be seen. Thank you. Original Note: Cardiology Referral Referral received for cardiology referral. Message sent to clinic at this time. Clinic to contact patient with appt date/time.
== END 2022-10-03 17:05 | disposition home or self-care (01) ==
PROVIDERS: Emergency Provider Emergency Medicine; PCP Nurse Practitioner Family
DX: R55 Syncope and collapse (principal); F17.210 Nicotine dependence, cigarettes, uncomplicated
CPT/HCPCS: 70450; 71045; 80053; 81001; 84146; 85025; 93005; 99285

== ENCOUNTER 2022-10-07 06:23 | Outpatient (CLI) | payer BC, MEDICAID, SELFPAY ==
--- NOTE | 2022-10-07 07:00 | USCV_ITS ---
Quynh Beckman Age: 37 Gender: F : 1985 Exam Date: 10/07/2022 06:51 Ordering Phys: Karen Dean Technologist: SACHIN Exam Location: [facility] Indication: SYNCOPE BP: 98 / 60 HR: 71 Rhythm: Sinus Technical Quality: Adequate MEASUREMENTS (Male / Female) Normal Values 2D ECHO LVOT Diameter 2.0 cm LV Ejection Fraction MOD 2C 70.4 % LV Ejection Fraction 2C AL 71.8 % LA Diameter 2.1 cm LA Width 2.7 cm LA Height 3.7 cm RA Width 2.9 cm RA Height 3.7 cm Aorta at Sinotubular Diameter 2.2 cm IVC Diameter 1.7 cm M-MODE Aortic Annulus Diameter 3.1 cm LA Ao Ratio MM 0.6 MV E Point Septal Separation 0.8 cm DOPPLER AV Peak Velocity 115.0 cm/s LVOT Peak Velocity 105.0 cm/s AV Area Cont Eq vti 3.0 cm squared AV Area Cont Eq pk 2.9 cm squared MV Peak Velocity 108.0 cm/s MV Area PHT 3.3 cm squared Mitral E to A Ratio 1.1 MV E' Velocity 62.0 cm/s Mitral E to MV E' Ratio 5.7 Mitral E to LV E' Lateral Ratio 4.3 Mitral E to LV E' Septal Ratio 8.9 TR Peak Velocity 197.4 cm/s TR Peak Gradient 15.6 mmHg TR Mean Velocity 165.3 cm/s TR Mean Gradient 11.5 mmHg TR Velocity Time Integral 67.5 cm TV Peak E Velocity 66.0 cm/s Right Atrial Pressure 3.0 mmHg Pulmonary Artery Systolic Pressu 18.6 mmHg PV Peak Velocity 85.0 cm/s RV Acceleration Time 0.2 s RV Ejection Time 0.4 s RV AcT/ET 0.5 FINDINGS Left Ventricle Normal left ventricular size, systolic function and wall thickness, with no regional wall motion abnormalities. Left ventricular ejection fraction is estimated at 70 %. Normal diastolic function. Right Ventricle Normal right ventricular size and systolic function. Right ventricular systolic pressure 18.6 mmHg. Right Atrium Normal right atrial size. Left Atrium Normal left atrial size. Mitral Valve Structurally normal mitral valve. No mitral valve stenosis. No mitral valve regurgitation. Aortic Valve Structurally normal trileaflet aortic valve. No aortic valve stenosis. No aortic valve regurgitation. Tricuspid Valve Structurally normal tricuspid valve. No tricuspid valve stenosis. Trace tricuspid valve regurgitation. Pulmonic Valve Structurally normal pulmonic valve. No pulmonary valve stenosis. No significant pulmonary valve regurgitation. Pericardium No pericardial effusion. Aorta Normal size aortic root and proximal ascending aorta. IVC Normal IVC dimension with >50% respiratory change of the inferior vena cava. CONCLUSIONS 1. Normal left ventricular size, systolic function and wall thickness, with no regional wall motion abnormalities. Left ventricular ejection fraction is estimated at 70 %. Normal diastolic function. 2. No prior similar studies to compare. Cherie Garcia MD (Electronically Signed) Final Date: 07 Oct 2022 12:32 S
== END 2022-10-07 06:24 | disposition home or self-care (01) ==
LOC: RAD 06:25
PROVIDERS: PCP Nurse Practitioner Family; Visit Provider Nurse Practitioner Family
DX: R55 Syncope and collapse (principal)
CPT/HCPCS: 93306